=== PATIENT | male | born 1955 | race Caucasian/White ===

== ENCOUNTER 2020-03-05 12:50 | Outpatient (REF) | payer OTHER, SELFPAY ==
--- NOTE | 2020-03-05 12:52 | MR_ITS ---
EXAMINATION: MR LUMBAR SPINE WITHOUT CONTRAST CLINICAL INFORMATION: Lower extremity radiculopathy and low back pain. COMPARISON: MRI dated 12/14/2017 TECHNIQUE: MRI of the lumbar spine was obtained using routine sequences without contrast. FINDINGS: VERTEBRAL BODIES AND PARASPINAL STRUCTURES: The marrow signal is homogeneous. Bulky anterior endplate spurring noted at the L1-L2 and L3-L4 levels, as on prior imaging. No compression fractures or subluxations. No marrow or soft tissue edema is visible. The paraspinal soft tissues are unremarkable. There are [id number]-[id number] degenerative changes of the SI joints. CONUS MEDULLARIS AND CAUDA EQUINA: Normal, terminating at the level of L1. No lower cord signal abnormality is seen. The cauda equina nerve roots are normal. SPINAL LEVELS: L1-L2: Bulky anterior endplate spurring. No disc pathology otherwise, no central canal stenosis or foraminal narrowing. L2-L3: Moderate hypertrophic facet arthropathy and mild disc bulge present with mild central canal stenosis. Mild left foraminal narrowing. L3-L4: Mild disc bulge and moderate facet arthropathy without central canal stenosis or significant foraminal encroachment. L4-L5: Shallow central disc protrusion superimposed upon a diffuse disc bulge with moderate facet arthropathy significantly encroaching upon the subarticular zones. Mass effect upon the traversing L5 nerve roots without change. Mild central canal stenosis and mild foraminal narrowing. L5-S1: Moderate facet arthropathy, more so on the right side. No disc pathology, central canal stenosis, or foraminal narrowing. MR/MR lumbar spine wo con IMPRESSION: Relatively stable examination with multilevel facet arthropathy. Findings most significant at L4-L5 with a shallow central disc protrusion and moderate facet degeneration encroaching upon the subarticular zones. Stable distortion of the L5 nerve roots bilaterally with mild central canal stenosis.
== END 2020-03-05 12:51 | disposition home or self-care (01) ==
LOC: HO.MRI 12:50
PROVIDERS: PCP Physician Assistant; Visit Provider Physician Assistant
DX: M54.16 Radiculopathy, lumbar region (principal); M47.16 Other spondylosis with myelopathy, lumbar region
CPT/HCPCS: 72148

== ENCOUNTER 2020-05-07 09:01 | Outpatient (REF) | payer OTHER, SELFPAY ==
[2020-05-07 10:14] LABS: Hematocrit 45.4 % (42-52); Hemoglobin 15.2 g/dl (14.0-18.0); Mean Corpuscular HGB Conc 33.5 g/dl (31.0-36.0); Mean Corpuscular Hemoglobin 30.8 pg (27.0-33.0); Mean Corpuscular Volume 92.1 fL (80-98); Platelet Count 177 X10*3/uL (160-400); Red Blood Count 4.93 X10*6/uL (4.60-5.80)
[2020-05-07 10:34] LABS: Creatinine Urine 71.89 mg/dL; Microalbum/Creatinine Ratio Ur 6.9 ug/mg cr
[2020-05-07 10:35] LABS: Alanine Aminotransferase 20 U/L (0-40); Albumin Level 4.5 g/dL (3.5-5.0); Alkaline Phosphatase 105 U/L (39-117); Anion Gap 14 (12-20); Aspartate Amino Transferase 20 U/L (5-37); Bilirubin Total 0.7 mg/dL (0.0-1.0); Blood Urea Nitrogen 32 mg/dL (9-16); Calcium 9.4 mg/dL (8.4-10.2); Carbon Dioxide 28 mmol/L (22-29); Chloride 104 mmol/L (96-108); Cholesterol 249 mg/dL; Estimated Glomerular Filt Rate > 60; Glucose Fasting 84 mg/dL (60-99); HDL Cholesterol 55 mg/dL; LDL Cholesterol Calculated 155 mg/dl; Potassium 4.6 mmol/l (3.3-5.1); Sodium 141 mmol/L (135-145); Total Protein 6.9 g/dL (6.5-8.0); Triglycerides 198 mg/dL
[2020-05-07 10:39] LABS: Estimated Average Glucose 105 mg/dL; Hemoglobin A1c % 5.3 %
[2020-05-07 10:58] LABS: Prostate Specific Antigen Scr 1.52 ng/mL (<0.05-4.0); TSH reflex Free T4 3.01 mIU/mL (0.32-4.0)
== END 2020-05-07 09:02 | disposition home or self-care (01) ==
LOC: HO.LAB 09:01
PROVIDERS: PCP Physician Assistant; Visit Provider Physician Assistant
DX: Z00.00 Encounter for general adult medical examination without abnormal findings (principal); I10 Essential (primary) hypertension; Z12.5 Encounter for screening for malignant neoplasm of prostate
CPT/HCPCS: 36415; 80053; 80061; 82043; 83036; 84153; 84443; 85027

== ENCOUNTER 2020-07-25 10:37 | Outpatient (REF) | payer OTHER, SELFPAY ==
[2020-07-25 11:44] LABS: Hematocrit 48.2 % (42-52); Mean Corpuscular HGB Conc 33.2 g/dl (31.0-36.0); Mean Corpuscular Hemoglobin 31.5 pg (27.0-33.0); Mean Corpuscular Volume 94.9 fL (80-98); Platelet Count 208 X10*3/uL (160-400); Red Blood Count 5.08 X10*6/uL (4.60-5.80); Red Cell Distribution Width 12.6 % (11.0-16.0); White Blood Count 8.7 X10*3/uL (4.8-10.8)
[2020-07-25 11:58] LABS: Estimated Average Glucose 105 mg/dL; Hemoglobin A1c % 5.3 %
[2020-07-25 12:19] LABS: TSH reflex Free T4 2.23 uIU/mL (0.32-4.0)
[2020-07-25 12:26] LABS: Alanine Aminotransferase 20 U/L (0-40); Albumin Level 4.9 g/dL (3.5-5.0); Alkaline Phosphatase 105 U/L (39-117); Anion Gap 14 (12-20); Aspartate Amino Transferase 21 U/L (5-37); Bilirubin Total 0.9 mg/dL (0.0-1.0); Blood Urea Nitrogen 35 mg/dL (9-16); Calcium 9.4 mg/dL (8.4-10.2); Carbon Dioxide 28 mmol/L (22-29); Chloride 105 mmol/L (96-108); Cholesterol 177 mg/dL; Estimated Glomerular Filt Rate > 60; Glucose Fasting 93 mg/dL (60-99); HDL Cholesterol 60 mg/dL; LDL Cholesterol Calculated 101 mg/dl; Potassium 4.5 mmol/L (3.3-5.1); Sodium 142 mmol/L (135-145); Total Protein 7.3 g/dL (6.5-8.0); Triglycerides 80 mg/dL
[2020-07-31 17:06] LABS: Testosterone, Free 45.8 pg/mL (35.0-155.0); Testosterone, Total 503 ng/dL (250-1100)
== END 2020-07-25 10:38 | disposition home or self-care (01) ==
LOC: HO.LAB 10:37
PROVIDERS: PCP Physician Assistant; Visit Provider Physician Assistant
DX: N40.0 Benign prostatic hyperplasia without lower urinary tract symptoms (principal); R68.82 Decreased libido; I10 Essential (primary) hypertension; E78.2 Mixed hyperlipidemia; J30.1 Allergic rhinitis due to pollen
CPT/HCPCS: 36415; 80053; 80061; 83036; 84402; 84403; 84443; 85027

== ENCOUNTER 2020-10-14 09:14 | Outpatient (REF) | payer OTHER, SELFPAY ==
--- NOTE | ~2020-10-14 | XR_ITS ---
EXAMINATION: XR LUMBOSACRAL SPINE CLINICAL INFORMATION: Radiculopathy COMPARISON: None TECHNIQUE: Three views of the lumbosacral spine. FINDINGS: There is normal lumbar lordosis. The vertebral heights, alignment and disc heights are normal. Large bridging ventrally osteophyte L1-L2 disc level. No lytic process seen. Incidental finding of bilateral hip prosthesis XR/XR lumbar spine 2-3V IMPRESSION: No acute fracture or dislocation. Large bridging ventral osteophytes L-1-2 disc level
[2020-10-14 09:47] LABS: Hematocrit 45.6 % (42-52); Hemoglobin 15.1 g/dl (14.0-18.0); Mean Corpuscular HGB Conc 33.1 g/dl (31.0-36.0); Mean Corpuscular Hemoglobin 30.8 pg (27.0-33.0); Mean Corpuscular Volume 93.1 fL (80-98); Mean Platelet Volume 10.6 fL (9.4-12.4); Platelet Count 200 X10*3/uL (160-400); Red Cell Distribution Width 12.1 % (11.0-16.0); White Blood Count 6.9 X10*3/uL (4.8-10.8)
[2020-10-14 10:08] LABS: Alanine Aminotransferase 18 U/L (0-40); Albumin Level 4.7 g/dL (3.5-5.0); Alkaline Phosphatase 126 U/L (39-117); Anion Gap 12 (12-20); Aspartate Amino Transferase 20 U/L (5-37); Bilirubin Total 0.9 mg/dL (0.0-1.0); Blood Urea Nitrogen 29 mg/dL (9-16); Carbon Dioxide 26 mmol/L (22-29); Chloride 107 mmol/L (96-108); Cholesterol 178 mg/dL; Estimated Glomerular Filt Rate > 60; Glucose Fasting 91 mg/dL (60-99); HDL Cholesterol 46 mg/dL; LDL Cholesterol Calculated 104 mg/dl; Potassium 4.5 mmol/L (3.3-5.1); Sodium 140 mmol/L (135-145); Triglycerides 140 mg/dL
[2020-10-14 10:29] LABS: Creatinine Urine 281.52 mg/dL; Microalbum/Creatinine Ratio Ur 7.4 ug/mg cr
[2020-10-14 10:30] LABS: TSH reflex Free T4 2.04 uIU/mL (0.32-4.0)
== END 2020-10-14 09:15 | disposition home or self-care (01) ==
LOC: HO.XRAY 09:14
PROVIDERS: PCP Physician Assistant; Visit Provider Physician Assistant
DX: I10 Essential (primary) hypertension (principal); E78.2 Mixed hyperlipidemia; M54.16 Radiculopathy, lumbar region
CPT/HCPCS: 36415; 72100; 80053; 80061; 82043; 84443; 85027

== ENCOUNTER 2023-03-03 12:56 | Outpatient (AMB) | payer OTHER, SELFPAY ==
--- NOTE | 2023-03-03 13:11 | A.OFFPC_ITS ---
Vital Signs 03/03/23 13:12 Height 5 ft 9 in Weight 190 lb 6 oz BMI 28.1 BP 132/68 Blood Pressure Location Lt brachial Position Sitting Respiration 16 Pulse 75 Pulse Source Pulse Oximeter Pulse Oximetry (%) 98 Oxygen Delivery Method Room Air Intake Visit Reasons: Annual Physical Intake Note: Patient is here today for a physical. 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 Accompanied by: Self / Same As Patient Allergies Seasonal Allergies Allergy (Unknown, Uncoded 03/03/23 13:28) unknown Medication List - Last Reconciled 03/03/23 by Diogenes Murdock PA-C albuterol sulfate 90 mcg/actuation 2 puffs PO Q4H PRN atorvastatin 20 mg PO DAILY fluoxetine 20 mg PO DAILY ipratropium bromide 2 sprays intranasal BID lisinopril 30 mg PO DAILY 90 days montelukast 10 mg PO DAILY 30 days tizanidine 4 mg PO BID 10 days Tobacco use date assessed: 03/03/23 Fall risk assessment: No Falls in past year Last assessed Fall Risk: 03/03/23 Dental Screening Dental Screen Date: 03/03/23 Did you have a dental visit in the last 12 months?: Yes Did you have a dental problem in the last 6 months where you did not have access to dental care?: No Was dental information given to patient?: Patient has dentist HPI Annual Physical HPI Details Patient is a 65 y/o M here today for a f/u visit. Pmhx of HLD, HTN, ONEYDA,, allergic rhinitis Concerns--> has been having bilateral feet tingling, wondering if this is due to his lumbar spine disc disease. . Anxiety: Patient's anxiety has been stable with daily use of his fluoxetine medication. .. HLD: Patient continues on statin therapy. Most recent lipid panel in April 2020 showing elevated cholesterol at 249 LDL 155. He reports he has been changing his diet in hopes to reduce his cholesterol. Colon cancer screening: Has done Cologuard in 2020 repeat 2019 for Vaccine: Up-to-date with COVID, pneumonia, tetanus and flu vaccine. Still considering shingles vaccine [facility] Medical History Dental root implant present Lumbar radiculopathy Surgical History History of surgery Hx of laminectomy Family History Father COPD (chronic obstructive pulmonary disease) Cirrhosis Mother CAD (coronary artery disease) CHF (congestive heart failure) Social History Housing: House Alcohol intake: never Patient Tobacco Use Status: Former Tobacco user Tobacco use type: Cigarette e-Cigarette/Vaping Use: Never Used Second Hand Smoke Exposure: No service: No Current occupational status: retired Cognitive needs: No Hearing needs: No Vision needs: No Questionnaire PHQ-9 Over the last 2 weeks, how often have you been bothered by any of the following problems? 1. Little interest or pleasure in doing things: not at all 2. Feeling down, depressed, or hopeless: not at all 3. Trouble falling or staying asleep, or sleeping too much: not at all 4. Feeling tired or having little energy: not at all 5. Poor appetite or overeating: not at all 6. Feeling bad about yourself - or that you are a failure or have let yourself or your family down: not at all 7. Trouble concentrating on things, such as reading the newspaper or watching television: not at all 8. Moving or speaking so slowly that other people could have noticed. Or the opposite - being so fidgety or restless that you have been moving around a lot more than usual: not at all 9. Thoughts that you would be better off or of hurting yourself in some way: not at all Total score: 0 Depression Screening Interpretation: Negative Depression Screening Done: Yes 27169 - PHQ-9 Billing: Yes Source: Developed by Drs. Chan Mclaughlin, Maeve Gibson, Damir Hawkins and colleagues, with an educational taya from [employer]. Thrive Questionnaire Date Thrive assessed: 03/03/23 I am a: Patient What is your living situation today?: I have a steady place to live Within the past 12 months, did the food you bought not last and you didn't have the money to get more?: Never true Within the past 12 months, did you worry whether your food would run out before you got money to buy more?: Never true Do you have trouble paying for medicines?: No Do you have trouble getting transportation to medical appointments?: No Do you have trouble paying your heating and electricity bill?: No Do you have trouble taking care of your child, family member or friend?: No Do you have trouble with day-to-day activities such as bathing, preparing meals, shopping, managing finances, etc.?: No Are you currently unemployed and looking for a job?: No Are you interested in more education?: No Please select the resources that you would like help with: None Currently or been in a relationship where the following occur: no concerns reported AUDIT C Alcohol Use Questionnaire (AUDIT-C) 1. How often do you have a drink containing alcohol?: Never 3. How often do you have six or more drinks on one occasion?: Never Total Score: 0 ONEYDA-7 AMB Questionnaire ONEYDA-7 Date ONEYDA - 7 assessed: 03/03/23 Feeling nervous, anxious, or on edge: 0 = Not at all Not being able to stop or control worryin = Not at all Worrying too much about different things: 0 = Not at all Trouble relaxin = Not at all Being so restless that it is hard to sit still: 0 = Not at all Becoming easily annoyed or irritable: 0 = Not at all Feeling afraid as if something awful might happen: 0 = Not at all Total ONEYDA-7 score (0-4 normal; 5-9 mild; 10-14 moderate; 15-21 severe): 0 Source: Developed by Drs. Chan Mclaughlin, Maeve Gibson, Damir Hawkins and colleagues, with an educational taya from [employer]. ONEYDA-7 Assessment Billing ONEYDA-7 Assessment Tool: ONEYDA-7 Assessment 22760 Review of Systems Const Denies body aches, Denies chills, Denies excessive sweating, Denies fatigue, Denies fever(s) and Denies headache(s) Eyes Denies blurry vision ENT Denies dysphagia, Denies vertigo, Denies dizziness, Denies headache(s), Denies hearing loss and Denies tinnitus Card Denies chest pain, Denies chest pain with activity, Denies syncope, Denies irregular heart rhythm and Denies dyspnea Resp Denies chest congestion, Denies cough, Denies hemoptysis, Denies dyspnea and Denies wheezing GI Denies abdominal pain, Denies melena, Denies hematochezia, Denies coffee ground emesis, Denies dysphagia, Denies diarrhea, Denies nausea and Denies vomiting Denies difficulty urinating, Denies dysuria, Denies urinary frequency, Denies urinary hesitancy and Denies urinary urgency Musc Denies arthralgias, Denies limited range of motion, Denies muscle cramps and Denies muscle weakness Skin/Breast Denies rash and Denies skin ulcer Neuro Denies Abnormal speech present, Denies confusion, Denies vertigo, Denies dizziness, Denies syncope, Denies headache(s), Denies memory loss and Denies seizure-like activity Psych Denies anxiety, Denies confusion, Denies depression, Denies memory loss, Denies panic attacks and Denies paranoia Endo Denies excessive sweating, Denies fatigue, Denies flushing, Denies polydipsia and Denies polyuria Aller/Immun Denies wheezing Physical exam (Primary Care) Vital Signs: Last Vital Signs Pulse 75 03/03/23 13:12 Resp 16 03/03/23 13:12 BP 132/68 03/03/23 13:12 Pulse Ox 98 03/03/23 13:12 Oxygen Delivery Method Room Air 03/03/23 13:12 BMI result Body Mass Index 28.1 Tobacco/Smoking Status: Tobacco use Status Tobacco use date assessed 03/03/23 03/03/23 13:17 Patient Tobacco Use Status Former Tobacco user 03/03/23 13:17 Tobacco use type Cigarette 03/03/23 13:17 e-Cigarette/Vaping Use Never Used 03/03/23 13:17 PHQ-9: PHQ-9 Score PHQ-9: Total score 0 03/03/23 13:17 Depression Screening Interpretation: Negative Thrive Assessment: Date of Thrive Assessment Date Thrive assessed 03/03/23 03/03/23 13:17 Currently or been in a relationship where the following occur: no concerns reported Const General: cooperative, comfortable, no acute distress, alert and awake; No confusion Orientation/consciousness: oriented to person, oriented to place, patient oriented x3 and No confusion HENMT Head: Yes normocephalic Ears: external ears normal and TM's normal bilaterally Face and sinus: No sinus tenderness Mouth: Normal oral and palatal mucosa present and tongue normal Teeth and gingiva: dentition normal and gingiva normal Throat: Yes posterior oropharynx normal, Yes tonsils normal and Yes uvula midline Eyes Conjunctivae: conjunctivae normal Sclerae: sclerae normal Pupils: Equal, round and reactive pupils present EOM: EOMs intact bilaterally Direct Ophthalmoscopy: No no photophobia Neck Neck: Yes no lymphadenopathy, No tender and Yes no JVD Thyroid: Thyroid normal Carotids: no bruits Chest Chest palpation & inspection: no tenderness Resp Effort & Inspection: normal respiratory effort, no audible wheezes, not labored and no stridor Auscultation: no crackles, no rales, no rhonchi and no wheezes Cardio Jugular venous distension: no JVD Rate: regular rate, not bradycardic and not tachycardic Rhythm: regular rhythm Bruits: no carotid bruits Peripheral pulses: Peripheral pulses 2+ throughout GI Inspection: Yes normal to inspection, No abdominal wall ecchymosis and No visible herniation Palpation (GI): Soft to palpation, nontender, no guarding, not rigid and No hepatosplenomegaly present Auscultation: normoactive bowel sounds General: Yes no CVA tenderness Back/Spine/Pelvis Back: no CVA tenderness and No back tenderness Cervical Spine: cervical ROM normal Thoracic/Lumbar Spine: thoracic and lumbar spine normal to inspection, straight leg raise negative bilaterally, No thoraco-lumbar ROM limited and No lumbar spinal tenderness Skin Lesions: no lesions Rashes: no rashes Wounds: no wounds Neuro General: oriented to person, oriented to place, patient oriented x3, CN's II-XI intact bilaterally and No confusion Cranial nerves: Yes Equal, round and reactive pupils present and Yes Normal accommodation reflex present Cognition (Neuro): normal cognition Speech: No Abnormal speech present Gait exam (Neuro): Normal gait present Motor exam (neuro): 5/5 motor strength present throughout Extrem Right upper extremity: full ROM; no cyanosis Left upper extremity: full ROM; no cyanosis Right lower extremity: no edema Left lower extremity: no edema Psych Appearance: grossly normal Mental Status: mental status grossly normal Affect: normal affect Attitude: cooperative Thought process: Normal thought process present Assessment and Plan Assessment & Plan (1) Annual physical exam: Code(s): Z00.00 - Encounter for general adult medical examination without abnormal findings (2) HTN (hypertension): Code(s): I10 - Essential (primary) hypertension Qualifiers: Hypertension type: essential hypertension Qualified Code(s): I10 - Essential (primary) hypertension Plan: Patient's blood pressure acceptable today in spite continues was sent home pressure remain below 140/90 (3) ONEYDA (generalized anxiety disorder): Code(s): F41.1 - Generalized anxiety disorder Plan: Patient continues on medication for since diet has been fairly well controlled. (4) HLD (hyperlipidemia): Code(s): E78.5 - Hyperlipidemia, unspecified Qualifiers: Hyperlipidemia type: mixed hyperlipidemia Qualified Code(s): E78.2 - Mixed hyperlipidemia Plan: Patient continues on statin therapy without side effect. He will get fasting labs done in near future. Goal LDL to remain below 130 (5) Allergic rhinitis: Code(s): J30.9 - Allergic rhinitis, unspecified Qualifiers: Allergic rhinitis trigger: pollen Allergic rhinitis seasonality: unspecified Qualified Code(s): J30.1 - Allergic rhinitis due to pollen Plan: Continues with allergy medication and nasal spray with good affect. (6) Lumbar disc displacement without myelopathy: Code(s): M51.26 - Other intervertebral disc displacement, lumbar region Plan: Continues to have lower back and neck pains daughter manageable with his own home physical therapy. He does use muscle relaxer an as-needed basis. Recently has been having tingling in his feet which may be related to a lumbar radiculopathy. Will supply patient with gabapentin the use at night. Orders: Orders Comprehensive [place]. Panel Fast Today E78.2 - Mixed hyperlipidemia Complete Blood Count no Diff Today I10 - Essential (primary) hypertension Prostate Specific Antigen Scr Today I10 - Essential (primary) hypertension, Z12.5 - Encounter for screening for malignant neoplasm of prostate Lipid Panel Today E78.2 - Mixed hyperlipidemia Medications: New gabapentin 300 mg PO BEDTIME 90 days 90 caps 1RF M51.26 - Other intervertebral disc displacement, lumbar region Refilled tizanidine 4 mg PO BID 10 days 20 tabs 0RF muscle spasticity M54.16 - Radiculopathy, lumbar region Coding Level of Care Code Est Pt Prev Care >65y(22419) Diagnoses Annual physical exam Z00.00 Essential hypertension I10 Hypertension type: essential hypertension ONEYDA (generalized anxiety disorder) F41.1 Mixed hyperlipidemia E78.2 Hyperlipidemia type: mixed hyperlipidemia Allergic rhinitis due to pollen, unspecified seasonality J30.1 Allergic rhinitis trigger: pollen Allergic rhinitis seasonality: unspecified Lumbar disc displacement without myelopathy M51.26 Additional Codes ONEYDA-7 Assessment Billing - ONEYDA-7 Assessment Tool: ONEYDA-7 Assessment 37309 ([id number])
[2023-03-03 13:12] VITALS: BP 132/68; PULSE 75; RESP 16; O2SAT 98; BMI 28.1
== END 2023-03-03 13:44 | disposition home or self-care (01) ==
PROVIDERS: PCP Physician Assistant; Visit Provider Physician Assistant
DX: Z00.00 Encounter for general adult medical examination without abnormal findings (principal); I10 Essential (primary) hypertension; F41.1 Generalized anxiety disorder; E78.2 Mixed hyperlipidemia; J30.1 Allergic rhinitis due to pollen; M51.26 Other intervertebral disc displacement, lumbar region
CPT/HCPCS: 99397

== ENCOUNTER 2023-03-03 13:48 | Outpatient (REF) | payer OTHER, SELFPAY ==
[2023-03-03 14:42] LABS: Hematocrit 47.9 % (42.0-52.0); Hemoglobin 16.1 g/dl (14.0-18.0); Mean Corpuscular HGB Conc 33.6 g/dl (31.0-36.0); Mean Corpuscular Volume 89.2 fL (80.0-98.0); Mean Platelet Volume 10.6 fL (9.4-12.4); Platelet Count 219 X10*3/uL (160-400); Red Blood Count 5.37 X10*6/uL (4.60-5.80); Red Cell Distribution Width 12.3 % (11.0-16.0); White Blood Count 11.2 X10*3/uL (4.8-10.8)
[2023-03-03 15:36] LABS: Alanine Aminotransferase 31 U/L (0-40); Albumin Level 4.7 g/dL (3.5-5.0); Alkaline Phosphatase 137 U/L (39-117); Anion Gap 14 (12-20); Aspartate Amino Transferase 30 U/L (5-37); Bilirubin Total 0.7 mg/dL (0.0-1.0); Blood Urea Nitrogen 27 mg/dL (9-16); Carbon Dioxide 25 mmol/L (22-29); Chloride 104 mmol/L (96-108); Cholesterol 182 mg/dL (<200); Estimated Glomerular Filt Rate > 60; Glucose Fasting 79 mg/dL (60-99); HDL Cholesterol 47 mg/dL (>40); LDL Cholesterol Calculated 108 mg/dL (<100); Potassium 4.1 mmol/L (3.3-5.1); Sodium 139 mmol/L (135-145); Total Protein 7.8 g/dL (6.5-8.0); Triglycerides 135 mg/dL (<150)
[2023-03-03 16:00] LABS: Prostate Specific Antigen Scr 1.14 ng/mL (<0.05-4.0)
== END 2023-03-03 13:49 | disposition home or self-care (01) ==
LOC: HO.LAB 13:48
PROVIDERS: PCP Physician Assistant; Visit Provider Physician Assistant
DX: Z12.5 Encounter for screening for malignant neoplasm of prostate (principal); E78.2 Mixed hyperlipidemia; I10 Essential (primary) hypertension
CPT/HCPCS: 36415; 80053; 80061; 84153; 85027

== ENCOUNTER 2023-07-26 15:07 | Outpatient (AMB) | payer OTHER, SELFPAY ==
[2023-07-26 15:09] VITALS: BP 132/64; PULSE 64; O2SAT 98; BMI 27.9
--- NOTE | 2023-07-26 15:09 | MHC.PC.OV ---
Vital Signs 07/26/23 15:09 Height 5 ft 9 in Weight 189 lb 4 oz BMI 27.9 BP 132/64 Pulse 64 Pulse Source Pulse Oximeter Pulse Oximetry (%) 98 Oxygen Delivery Method Room Air Intake Visit Reasons: CHD 07/15/23 Intake Note: Patient is here for hospital discharge follow up. Patient was discharged from [facility] and then transfer to [facility] in [place] on 07/17/23. Catering Barista Required: No Accompanied by: Self / Same As Patient Allergies isosorbide [From Imdur] Adverse Reaction (Intermediate, Verified 07/27/23 07:56) Migraine metoprolol Adverse Reaction (Intermediate, Verified 07/27/23 07:56) Bradycardia Seasonal Allergies Allergy (Unknown, Uncoded 07/26/23 15:38) unknown Medication List - Last Reconciled 07/26/23 by Diogenes Murdock PA-C albuterol sulfate 90 mcg/actuation 2 puffs PO Q4H PRN amlodipine 5 mg PO DAILY aspirin 81 mg PO DAILY atorvastatin 80 mg PO DAILY clopidogrel 75 mg PO DAILY fluoxetine 20 mg PO DAILY gabapentin 300 mg PO BEDTIME 90 days ipratropium bromide 2 sprays intranasal BID isosorbide mononitrate ER 30 mg PO DAILY lisinopril 30 mg PO DAILY 90 days montelukast 10 mg PO DAILY 30 days nitroglycerin mg sublingual DIRECTED tizanidine 4 mg PO BID 10 days Tobacco use date assessed: 07/26/23 Fall risk assessment: No Falls in past year Last assessed Fall Risk: 07/26/23 Dental Screening Dental Screen Date: 07/26/23 Did you have a dental visit in the last 12 months?: Yes Did you have a dental problem in the last 6 months where you did not have access to dental care?: No Was dental information given to patient?: Patient has dentist HPI CHD 07/15/23 HPI Details Patient is a 68 y/o M here today for a hospital discharge follow-up. Pmhx of HLD, HTN, ONEYDA,, allergic rhinitis Coronary artery disease-- > Patient was seen at [facility] for acute chest pain. His troponins were negative, EKG was non ischemic. He was transferred to [facility] for cardiac catheterization which showed Complete block of RCA . He was transitioned to metoprolol, Imdur and Plavix. He unfortunately had bradycardia due to metoprolol and was unable to tolerate Imdur due to headaches. He was transition to amlodipine 5 mg. He now has an outpatient learning facilitator at [facility] whom will be sending patient for cardiac rehab. At this time he is going to be medically managed for his coronary artery disease. . Anxiety: Patient's anxiety has been elevated as of late due to his new heart condition. He is interested in increasing his fluoxetine dose to 40 mg. .. [facility] Medical History Dental root implant present Lumbar radiculopathy Surgical History History of surgery Hx of laminectomy Family History Father COPD (chronic obstructive pulmonary disease) Cirrhosis Mother CAD (coronary artery disease) CHF (congestive heart failure) Social History Housing: House Alcohol intake: never Patient Tobacco Use Status: Former Tobacco user Tobacco use type: Cigarette e-Cigarette/Vaping Use: Never Used Second Hand Smoke Exposure: No service: No Current occupational status: retired Cognitive needs: No Hearing needs: No Vision needs: No Questionnaire PHQ-9 Over the last 2 weeks, how often have you been bothered by any of the following problems? 1. Little interest or pleasure in doing things: not at all 2. Feeling down, depressed, or hopeless: not at all 3. Trouble falling or staying asleep, or sleeping too much: not at all 4. Feeling tired or having little energy: not at all 5. Poor appetite or overeating: not at all 6. Feeling bad about yourself - or that you are a failure or have let yourself or your family down: not at all 7. Trouble concentrating on things, such as reading the newspaper or watching television: not at all 8. Moving or speaking so slowly that other people could have noticed. Or the opposite - being so fidgety or restless that you have been moving around a lot more than usual: not at all 9. Thoughts that you would be better off or of hurting yourself in some way: not at all Total score: 0 Depression Screening Interpretation: Negative Depression Screening Done: Yes 52251 - PHQ-9 Billing: Yes Source: Developed by Drs. Chan Mclaughlin, Maeve Gibson, Damir Hawkins and colleagues, with an educational taya from [email or web address]. Thrive Questionnaire Date Thrive assessed: 07/26/23 I am a: Patient What is your living situation today?: I have a steady place to live Within the past 12 months, did the food you bought not last and you didn't have the money to get more?: Never true Within the past 12 months, did you worry whether your food would run out before you got money to buy more?: Never true Do you have trouble paying for medicines?: No Do you have trouble getting transportation to medical appointments?: No Do you have trouble paying your heating and electricity bill?: No Do you have trouble taking care of your child, family member or friend?: No Do you have trouble with day-to-day activities such as bathing, preparing meals, shopping, managing finances, etc.?: No Are you currently unemployed and looking for a job?: No Are you interested in more education?: No Please select the resources that you would like help with: None Currently or been in a relationship where the following occur: no concerns reported THRIVE Score: 0 AUDIT C Alcohol Use Questionnaire (AUDIT-C) 1. How often do you have a drink containing alcohol?: Never 3. How often do you have six or more drinks on one occasion?: Never Total Score: 0 ONEYDA-7 AMB Questionnaire ONEYDA-7 Date ONEYDA - 7 assessed: 07/26/23 Feeling nervous, anxious, or on edge: 3 = Nearly every day Not being able to stop or control worryin = Nearly every day Worrying too much about different things: 3 = Nearly every day Trouble relaxin = Nearly every day Being so restless that it is hard to sit still: 3 = Nearly every day Becoming easily annoyed or irritable: 3 = Nearly every day Feeling afraid as if something awful might happen: 3 = Nearly every day Total ONEYDA-7 score (0-4 normal; 5-9 mild; 10-14 moderate; 15-21 severe): 21 Source: Developed by Drs. Chan Mclaughlin, Damir Isabel Kroenke and colleagues, with an educational taya from [email or web address]. ONEYDA-7 Assessment Billing ONEYDA-7 Assessment Tool: ONEYDA-7 Assessment 09308 Review of Systems Const Reports fatigue and Denies headache(s) Eyes Denies loss of vision ENT Denies vertigo, Denies dizziness, Denies headache(s) and Denies sore throat Card Denies chest pain, Denies leg edema and Denies lightheadedness Resp Denies cough, Denies hemoptysis and Denies wheezing GI Denies abdominal pain, Denies melena, Denies constipation, Denies diarrhea and Denies vomiting Denies dysuria, Denies urinary frequency and Denies urinary urgency Musc Denies arthralgias, Denies joint swelling, Denies numbness and Denies tingling Neuro Denies Abnormal speech present, Denies behavioral changes, Denies vertigo, Denies dizziness, Denies headache(s), Denies loss of vision, Denies memory loss, Denies numbness and Denies tingling Psych Reports anxiety, Denies behavioral changes, Denies depression, Denies memory loss and Denies panic attacks Endo Reports fatigue Dane/Lymph Denies easy bleeding and Denies easy bruising Aller/Immun Denies wheezing Physical exam (Primary Care) Vital Signs: Last Vital Signs Pulse 64 07/26/23 15:09 BP 132/64 07/26/23 15:09 Pulse Ox 98 07/26/23 15:09 Oxygen Delivery Method Room Air 07/26/23 15:09 BMI result Body Mass Index 27.9 Tobacco/Smoking Status: Tobacco use Status Tobacco use date assessed 07/26/23 07/26/23 15:19 Patient Tobacco Use Status Former Tobacco user 07/26/23 15:09 Tobacco use type Cigarette 07/26/23 15:09 e-Cigarette/Vaping Use Never Used 07/26/23 15:09 PHQ-9: PHQ-9 Score PHQ-9: Total score 0 07/26/23 15:43 Depression Screening Interpretation: Negative Thrive Assessment: Date of Thrive Assessment Date Thrive assessed 07/26/23 07/26/23 15:19 Currently or been in a relationship where the following occur: no concerns reported Const General: healthy appearing, no acute distress, alert and awake Nutritional Appearance: well nourished Orientation/consciousness: oriented to person, oriented to place and oriented to time HENRI Ears: TM's normal bilaterally General nose exam: Normal nasal mucous membranes and turbinates present Eyes Conjunctivae: conjunctivae normal Sclerae: sclerae normal Pupils: Equal, round and reactive pupils present Neck Neck: Yes no lymphadenopathy and Yes no JVD Thyroid: Thyroid normal Carotids: no bruits Resp Effort & Inspection: normal respiratory effort and not tachypneic Auscultation: no crackles, no rales, no rhonchi and no wheezes Cardio Rate: regular rate Rhythm: regular rhythm Heart sounds: no murmurs and normal S1 and S2 GI Palpation (GI): Soft to palpation, nontender, no hepatomegaly and no splenomegaly Auscultation: normal bowel sounds Skin General skin exam: no rashes or lesions noted and dry skin Neuro General: oriented to person, oriented to place and oriented to time Cranial nerves: Yes Equal, round and reactive pupils present Speech: No Abnormal speech present Gait exam (Neuro): Normal gait present Motor exam (neuro): no tremor noted Extrem Right upper extremity: full ROM Left upper extremity: full ROM Right lower extremity: full ROM; no edema Left lower extremity: full ROM; no edema Psych Mental Status: mental status grossly normal Speech and movement: Normal speech and movement present Affect: normal affect Attitude: cooperative Thought process: Normal thought process present Assessment and Plan Assessment & Plan (1) CAD (coronary artery disease): Code(s): I25.10 - Atherosclerotic heart disease of [place] coronary artery without angina pectoris Qualifiers: Associated angina: with unstable angina Coronary Disease-Associated Artery/Lesion type: [place] artery [place] vs. transplanted heart: [place] heart Qualified Code(s): I25.110 - Atherosclerotic heart disease of [place] coronary artery with unstable angina pectoris Plan: As per HPI patient recently underwent cardiac catheterization showing complete occlusion of the RCA. Stent can not be placed. Patient is now being medically managed for his coronary artery disease. He has outpatient learning facilitator at [facility]. He will be sent for cardiac rehab. He has been started on high-dose statin therapy, dual anti-platelet therapy for the next year. Of note he was unable to tolerate metoprolol and Imdur due to side effects (2) HTN (hypertension): Code(s): I10 - Essential (primary) hypertension Qualifiers: Hypertension type: essential hypertension Qualified Code(s): I10 - Essential (primary) hypertension Plan: Patient has been started on amlodipine 5 mg. Blood pressure acceptable today in office. Advised to monitor blood pressure at home with goal blood pressure to remain below 140/90. (3) HLD (hyperlipidemia): Code(s): E78.5 - Hyperlipidemia, unspecified Qualifiers: Hyperlipidemia type: mixed hyperlipidemia Qualified Code(s): E78.2 - Mixed hyperlipidemia Plan: Now on high potency statin. Will recheck lipid panel to ensure appropriate LDL optimally below 70. (4) ONEYDA (generalized anxiety disorder): Code(s): F41.1 - Generalized anxiety disorder Plan: Patient's ONEYDA-7 score positive for anxiety which has been existing condition for him. Patient reports his anxiety has been elevated as of late due to his new medical issue. He would like to increase his fluoxetine to 40 mg Orders: Orders Lipid Panel 07/26/23 I25.110 - Atherosclerotic heart disease of [place] coronary artery with unstable angina pectoris Comprehensive [place]. Panel Fast 07/26/23 I25.110 - Atherosclerotic heart disease of [place] coronary artery with unstable angina pectoris Complete Blood Count no Diff 07/26/23 I25.110 - Atherosclerotic heart disease of [place] coronary artery with unstable angina pectoris Prostate Specific Antigen Scr 07/26/23 I25.110 - Atherosclerotic heart disease of [place] coronary artery with unstable angina pectoris, Z12.5 - Encounter for screening for malignant neoplasm of prostate Medications: New fluoxetine 40 mg PO DAILY 30 days 30 caps 3RF F41.1 - Generalized anxiety disorder On Hold fluoxetine Hold Comment: Doctor's Order 20 mg PO DAILY 90 caps 2RF F41.1 - Generalized anxiety disorder Coding Level of Care Code Est Pt Level 4 (69339) Diagnoses Coronary artery disease involving [place] coronary artery of [place] heart with unstable angina pectoris I25.110 Associated angina: with unstable angina Coronary Disease-Associated Artery/Lesion type: [place] artery [place] vs. transplanted heart: [place] heart Essential hypertension I10 Hypertension type: essential hypertension Mixed hyperlipidemia E78.2 Hyperlipidemia type: mixed hyperlipidemia ONEYDA (generalized anxiety disorder) F41.1 Additional Codes ONEYDA-7 Assessment Billing - ONEYDA-7 Assessment Tool: ONEYDA-7 Assessment 26191 ([id number])
== END 2023-07-26 16:12 | disposition home or self-care (01) ==
PROVIDERS: PCP Physician Assistant; Visit Provider Physician Assistant
DX: I25.110 Atherosclerotic heart disease of native coronary artery with unstable angina pectoris (principal); I10 Essential (primary) hypertension; E78.2 Mixed hyperlipidemia; F41.1 Generalized anxiety disorder
CPT/HCPCS: 99214

== ENCOUNTER 2024-03-06 13:08 | Outpatient (REF) | payer OTHER, SELFPAY ==
[2024-03-06 14:30] LABS: Hematocrit 45.5 % (42.0-52.0); Hemoglobin 15.7 g/dl (14.0-18.0); Mean Corpuscular HGB Conc 34.5 g/dl (31.0-36.0); Mean Corpuscular Volume 89.9 fL (80.0-98.0); Mean Platelet Volume 10.4 fL (9.4-12.4); Platelet Count 226 X10*3/uL (160-400); Red Blood Count 5.06 X10*6/uL (4.60-5.80); Red Cell Distribution Width 12.6 % (11.0-16.0); White Blood Count 9.1 X10*3/uL (4.8-10.8)
[2024-03-06 15:05] LABS: Alanine Aminotransferase 37 U/L (0-40); Albumin Level 4.6 g/dL (3.5-5.0); Alkaline Phosphatase 133 U/L (39-117); Anion Gap 11 (12-20); Aspartate Amino Transferase 33 U/L (5-37); Bilirubin Total 0.6 mg/dL (0.0-1.0); Blood Urea Nitrogen 27 mg/dL (9-16); Calcium 9.8 mg/dL (8.4-10.2); Carbon Dioxide 28 mmol/L (22-29); Chloride 104 mmol/L (96-108); Cholesterol 139 mg/dL (<200); Estimated Glomerular Filt Rate > 60; Glucose Fasting 160 mg/dL (60-99); HDL Cholesterol 45 mg/dL (>40); LDL Cholesterol Calculated 74 mg/dL (<100); Potassium 3.9 mmol/L (3.3-5.1); Sodium 139 mmol/L (135-145); Total Protein 7.4 g/dL (6.5-8.0); Triglycerides 103 mg/dL (<150)
[2024-03-06 15:12] LABS: Creatinine Urine 205.09 mg/dL; Microalbum/Creatinine Ratio Ur 23.4 ug/mg cr (<30)
[2024-03-06 15:19] LABS: Prostate Specific Antigen Scr 1.12 ng/mL (<0.05-4.0)
== END 2024-03-06 13:09 | disposition home or self-care (01) ==
LOC: HO.LAB 13:08
PROVIDERS: PCP Physician Assistant; Visit Provider Physician Assistant
DX: Z00.00 Encounter for general adult medical examination without abnormal findings (principal); Z12.5 Encounter for screening for malignant neoplasm of prostate; I10 Essential (primary) hypertension; I25.110 Atherosclerotic heart disease of native coronary artery with unstable angina pectoris; M54.12 Radiculopathy, cervical region; K62.3 Rectal prolapse
CPT/HCPCS: 36415; 80053; 80061; 82043; 82570; 84153; 85027; 90471; 96127

== ENCOUNTER 2024-03-06 13:08 | Outpatient (AMB) | payer OTHER, SELFPAY ==
[2024-03-06 13:15] VITALS: BP 148/62; PULSE 96; O2SAT 97; BMI 26.8
--- NOTE | 2024-03-06 13:15 | A.OFFPC_ITS ---
Vital Signs 03/06/24 13:15 Height 5 ft 9 in Weight 181 lb 8 oz BMI 26.8 BP 148/62 H Blood Pressure Location Lt brachial Position Sitting Pulse 96 Pulse Source Pulse Oximeter Pulse Oximetry (%) 97 Oxygen Delivery Method Room Air Intake Visit Reasons: pe - see comments Intake Note: Patient is here today for a physical. 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 Accompanied by: Self / Same As Patient Allergies isosorbide [From Imdur] Adverse Reaction (Intermediate, Verified 03/06/24 13:17) Migraine metoprolol Adverse Reaction (Intermediate, Verified 03/06/24 13:17) Bradycardia Seasonal Allergies Allergy (Unknown, Uncoded 03/06/24 13:17) unknown Medication List - Last Reconciled 03/06/24 by Diogenes Murdock PA-C albuterol sulfate 90 mcg/actuation 2 puffs PO Q4H PRN amlodipine 5 mg PO DAILY aspirin 81 mg PO DAILY atorvastatin 80 mg PO DAILY clopidogrel 75 mg PO DAILY fluoxetine 20 mg PO DAILY fluoxetine 40 mg PO DAILY gabapentin 300 mg PO BEDTIME 90 days ipratropium bromide 2 sprays intranasal BID lisinopril 30 mg PO DAILY 90 days montelukast 10 mg PO DAILY 30 days nitroglycerin mg sublingual DIRECTED tizanidine 4 mg PO BID 10 days Tobacco use date assessed: 07/26/23 Dental Screening Dental Screen Date: 07/26/23 HPI pe - see comments HPI Details Patient is a 69 y/o M here today for routine annual physical Pmhx of HLD, HTN, ONEYDA,, allergic rhinitis, cervical disc disease \ Coronary artery disease-- > Patient was seen at [facility] for acute chest pain. His troponins were negative, EKG was non ischemic. He was transferred to [facility] for cardiac catheterization which showed Complete block of RCA . He was transitioned to metoprolol, Imdur and Plavix. He unfortunately had bradycardia due to metoprolol and was unable to tolerate Imdur due to headaches. Has now finished cardiac rehab and has done really well. At this time he is going to be medically managed for his coronary artery disea se. He is now interested transferring his care to [facility] .. Cervical spine disease: Recently neck pain and decreased range of motion/stiffness in his neck. Did go see [facility] and received cortisone injections which did help. His x-ray does show pretty severe neural foraminal encroachment. Of note===> Has had a laminectomy in 1980s. . Anxiety: Patient's anxiety has been elevated as of late due to his new heart condition. He is interested in increasing his fluoxetine dose to 40 mg. .. Colon cancer screening: Has done Cologuard in 2023- Neg repeat 3 years- does report having an intermittent bulge in his rectum whenever he strains. We did discuss that this may be a hemorrhoid. He would like to see rectal surgeon for evaluation Vaccine: Up-to-date with COVID, pneumonia, tetanus and flu vaccine. Still considering shingles vaccine [facility] Medical History (Updated 03/06/24 @ 14:34 by Diogenes Murdock PA-C) Cervical spondylitis Dental root implant present Lumbar radiculopathy Surgical History History of surgery Hx of laminectomy Family History Father COPD (chronic obstructive pulmonary disease) Cirrhosis Mother CAD (coronary artery disease) CHF (congestive heart failure) Social History Housing: House Alcohol intake: never Patient Tobacco Use Status: Former Tobacco user Tobacco use type: Cigarette e-Cigarette/Vaping Use: Never Used Second Hand Smoke Exposure: No service: No Current occupational status: retired Cognitive needs: No Hearing needs: No Vision needs: No Questionnaire PHQ-9 Over the last 2 weeks, how often have you been bothered by any of the following problems? 1. Little interest or pleasure in doing things: not at all 2. Feeling down, depressed, or hopeless: not at all 3. Trouble falling or staying asleep, or sleeping too much: not at all 4. Feeling tired or having little energy: not at all 5. Poor appetite or overeating: not at all 6. Feeling bad about yourself - or that you are a failure or have let yourself or your family down: not at all 7. Trouble concentrating on things, such as reading the newspaper or watching television: not at all 8. Moving or speaking so slowly that other people could have noticed. Or the opposite - being so fidgety or restless that you have been moving around a lot more than usual: not at all 9. Thoughts that you would be better off or of hurting yourself in some way: not at all Total score: 0 Depression Screening Interpretation: Negative Depression Screening Done: Yes 51008 - PHQ-9 Billing: Yes Source: Developed by Drs. Chan Mclaughlin, Maeve Gibson, Damir Hawkins and colleagues, with an educational taya from [employer]. Thrive Questionnaire Date Thrive assessed: 03/06/24 I am a: Patient What is your living situation today?: I have a steady place to live Within the past 12 months, did the food you bought not last and you didn't have the money to get more?: Often true Within the past 12 months, did you worry whether your food would run out before you got money to buy more?: Sometimes True Do you have trouble paying for medicines?: No Do you have trouble getting transportation to medical appointments?: No Do you have trouble paying your heating and electricity bill?: No Do you have trouble taking care of your child, family member or friend?: No Do you have trouble with day-to-day activities such as bathing, preparing meals, shopping, managing finances, etc.?: No Are you currently unemployed and looking for a job?: No Are you interested in more education?: No Please select the resources that you would like help with: Food Currently or been in a relationship where the following occur: No concerns reported THRIVE Score: 2 AUDIT C Alcohol Use Questionnaire (AUDIT-C) 1. How often do you have a drink containing alcohol?: Never 3. How often do you have six or more drinks on one occasion?: Never Total Score: 0 ONEYDA-7 AMB Questionnaire ONEYDA-7 Date ONEYDA - 7 assessed: 03/06/24 Feeling nervous, anxious, or on edge: 0 = Not at all Not being able to stop or control worryin = Not at all Worrying too much about different things: 0 = Not at all Trouble relaxin = Not at all Being so restless that it is hard to sit still: 0 = Not at all Becoming easily annoyed or irritable: 0 = Not at all Feeling afraid as if something awful might happen: 0 = Not at all Total ONEYDA-7 score (0-4 normal; 5-9 mild; 10-14 moderate; 15-21 severe): 0 Source: Developed by Drs. Chan Mclaughlin, Maeve Gibson, Damir Hawkins and colleagues, with an educational taya from [employer]. ONEYDA-7 Assessment Billing ONEYDA-7 Assessment Tool: ONEYDA-7 Assessment 66624 Review of Systems Const Denies body aches, Denies chills, Denies excessive sweating, Denies fatigue, Denies fever(s) and Denies headache(s) Eyes Denies blurry vision ENT Denies dysphagia, Denies vertigo, Denies dizziness, Denies headache(s), Denies hearing loss and Denies tinnitus Card Denies chest pain, Denies chest pain with activity, Denies syncope, Denies irregular heart rhythm and Denies dyspnea Resp Denies chest congestion, Denies cough, Denies hemoptysis, Denies dyspnea and Denies wheezing GI Denies abdominal pain, Denies melena, Denies hematochezia, Denies coffee ground emesis, Denies dysphagia, Denies diarrhea, Denies nausea and Denies vomiting Denies difficulty urinating, Denies dysuria, Denies urinary frequency, Denies urinary hesitancy and Denies urinary urgency Musc Denies arthralgias, Denies limited range of motion, Denies muscle cramps and Denies muscle weakness Skin/Breast Denies rash and Denies skin ulcer Neuro Denies Abnormal speech present, Denies confusion, Denies vertigo, Denies dizziness, Denies syncope, Denies headache(s), Denies memory loss and Denies seizure-like activity Psych Denies anxiety, Denies confusion, Denies depression, Denies memory loss, Denies panic attacks and Denies paranoia Endo Denies excessive sweating, Denies fatigue, Denies flushing, Denies polydipsia and Denies polyuria Aller/Immun Denies wheezing Physical exam (Primary Care) Vital Signs: Last Vital Signs Pulse 96 03/06/24 13:15 BP 148/62 H 03/06/24 13:15 Pulse Ox 97 03/06/24 13:15 Oxygen Delivery Method Room Air 03/06/24 13:15 BMI result Body Mass Index 26.8 Tobacco/Smoking Status: Tobacco use Status Tobacco use date assessed 07/26/23 03/06/24 13:16 Patient Tobacco Use Status Former Tobacco user 03/06/24 13:16 Tobacco use type Cigarette 03/06/24 13:16 e-Cigarette/Vaping Use Never Used 03/06/24 13:16 PHQ-9: PHQ-9 Score PHQ-9: Total score 0 03/06/24 13:19 Depression Screening Interpretation: Negative Thrive Assessment: Date of Thrive Assessment Date Thrive assessed 03/06/24 03/06/24 13:16 Currently or been in a relationship where the following occur: No concerns re ported Const General: cooperative, comfortable, no acute distress, alert and awake; No confusion Orientation/consciousness: oriented to person, oriented to place, patient oriented x3 and No confusion HENMT Head: Yes normocephalic Ears: external ears normal and TM's normal bilaterally Face and sinus: No sinus tenderness Mouth: Normal oral and palatal mucosa present and tongue normal Teeth and gingiva: dentition normal and gingiva normal Throat: Yes posterior oropharynx normal, Yes tonsils normal and Yes uvula midline Eyes Conjunctivae: conjunctivae normal Sclerae: sclerae normal Pupils: Equal, round and reactive pupils present EOM: EOMs intact bilaterally Direct Ophthalmoscopy: No no photophobia Neck Neck: Yes no lymphadenopathy, No tender and Yes no JVD Thyroid: Thyroid normal Carotids: no bruits Chest Chest palpation & inspection: no tenderness Resp Effort & Inspection: normal respiratory effort, no audible wheezes, not labored and no stridor Auscultation: no crackles, no rales, no rhonchi and no wheezes Cardio Jugular venous distension: no JVD Rate: regular rate, not bradycardic and not tachycardic Rhythm: regular rhythm Bruits: no carotid bruits Peripheral pulses: Peripheral pulses 2+ throughout GI Inspection: Yes normal to inspection, No abdominal wall ecchymosis and No visible herniation Palpation (GI): Soft to palpation, nontender, no guarding, not rigid and No hepatosplenomegaly present Auscultation: normoactive bowel sounds General: Yes no CVA tenderness Back/Spine/Pelvis Back: no CVA tenderness and No back tenderness Cervical Spine: cervical ROM normal Thoracic/Lumbar Spine: thoracic and lumbar spine normal to inspection, straight leg raise negative bilaterally, No thoraco-lumbar ROM limited and No lumbar spinal tenderness Skin Lesions: no lesions Rashes: no rashes Wounds: no wounds Neuro General: oriented to person, oriented to place, patient oriented x3, CN's II-XI intact bilaterally and No confusion Cranial nerves: Yes Equal, round and reactive pupils present and Yes Normal accommodation reflex present Cognition (Neuro): normal cognition Speech: No Abnormal speech present Gait exam (Neuro): Normal gait present Motor exam (neuro): 5/5 motor strength present throughout Extrem Right upper extremity: full ROM; no cyanosis Left upper extremity: full ROM; no cyanosis Right lower extremity: no edema Left lower extremity: no edema Psych Appearance: grossly normal Mental Status: mental status grossly normal Affect: normal affect Attitude: cooperative Thought process: Normal thought process present Office Procedures Flu Questionnaire Does the patient have a severe egg allergy?: No Immunizations Fluarix Triv [id number] (PF) 45 mcg (15 mcg x 3)/0.5 mL IM syringe Performing Provider: Diogenes Murdock PA-C [facility] Documented (not given) by: KIM Hooks on 03/06/24 13:17 Reason Not Given: Received Previously Coding Level of Care Code Est Pt Prev Care >65y(17241) Diagnoses Annual physical exam Z00.00 Essential hypertension I10 Hypertension type: essential hypertension Coronary artery disease involving [place] coronary artery of [place] heart with unstable angina pectoris I25.110 Associated angina: with unstable angina Coronary Disease-Associated Artery/Lesion type: [place] artery [place] vs. transplanted heart: [place] heart Cervical radiculitis M54.12 Rectal prolapse K62.3 Additional Codes ONEYDA-7 Assessment Billing - ONEYDA-7 Assessment Tool: ONEYDA-7 Assessment 51996 ([id number]) Assessment & Plan Assessment & Plan (1) Annual physical exam: Code(s): Z00.00 - Encounter for general adult medical examination without abnormal findings Category: Medical Plan: As per HPI (2) HTN (hypertension): Code(s): I10 - Essential (primary) hypertension Category: Medical Qualifiers: Hypertension type: essential hypertension Qualified Code(s): I10 - Essential (primary) hypertension Plan: Patient's blood pressure slightly elevated today in office. He reports having assaulted better popcorn before his appointment today. He does monitor his blood pressure at home and reports normal readings. Goal blood pressures to be below 140/90 (3) CAD (coronary artery disease): Code(s): I25.10 - Atherosclerotic heart disease of [place] coronary artery without angina pectoris Category: Medical Qualifiers: Associated angina: with unstable angina Coronary Disease-Associated Artery/Lesion type: [place] artery [place] vs. transplanted heart: [place] heart Qualified Code(s): I25.110 - Atherosclerotic heart disease of [place] coronary artery with unstable angina pectoris Plan: Patient followed by industrial electrical engineer in [place]. His continued high-dose statin therapy, amlodipine and dual antiplatelet therapy. He is interested in establishing care with [facility] so that all of his records are in [place]. (4) Cervical radiculitis: Code(s): M54.12 - Radiculopathy, cervical region Category: Medical Plan: As per HPI patient reports having more neck pain as of late. Reports extreme stiffness and pain in his neck as of late. He did get cortisone injection recently through [facility] which has helped. He did get recent cervical spine x-ray that did show pretty severe disc disease with neuroforaminal encroachment. Will try for MRI to evaluate for any worsening disc herniation with central stenosis. He will try to continue physical therapy and [place]. (5) Rectal prolapse: Code(s): K62.3 - Rectal prolapse Category: Medical Plan: Patient reports intermittent rectal bulge to which he has been treating with warm water soaks. He denies any rectal bleeding. He would like to see rectal surgeon for evaluation. Orders: Orders Influenza [id number] Immunization Today Z23 - Encounter for immunization MR cervical spine wo con Today M54.12 - Radiculopathy, cervical region Microalbumin, Random (w Creat) Today I10 - Essential (primary) hypertension Referrals Cardiology Referral I25.110 - Atherosclerotic heart disease of [place] coronary artery with unstable angina pectoris General Surgery Referral K62.3 - Rectal prolapse
== END 2024-03-06 13:50 | disposition home or self-care (01) ==
LOC: HO.HMCH 13:09
PROVIDERS: PCP Physician Assistant; Visit Provider Physician Assistant
DX: Z00.00 Encounter for general adult medical examination without abnormal findings (principal); I10 Essential (primary) hypertension; I25.110 Atherosclerotic heart disease of native coronary artery with unstable angina pectoris; M54.12 Radiculopathy, cervical region; K62.3 Rectal prolapse; Z23 Encounter for immunization

== ENCOUNTER 2024-08-08 13:34 | Outpatient (AMB) | payer OTHER, SELFPAY ==
[2024-08-08 13:46] VITALS: BP 120/80; PULSE 83; BMI 28.0
--- NOTE | 2024-08-08 13:46 | A.OFFVIS_ITS ---
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 Required: No Allergies isosorbide [From Imdur] Adverse Reaction (Intermediate, Verified 03/06/24 13:17) Migraine metoprolol Adverse Reaction (Intermediate, Verified 03/06/24 13:17) Bradycardia Seasonal Allergies Allergy (Unknown, Uncoded 03/06/24 13:17) unknown Medication List - Last Reconciled 08/08/24 by Carroll Foss MD albuterol sulfate 90 mcg/actuation 2 puffs PO Q4H PRN amlodipine 5 mg PO DAILY atorvastatin 80 mg PO DAILY cholecalciferol (vitamin D3) 25 mcg PO DAILY coenzyme Q10 (Ultra CoQ10) 75 mg PO DAILY cyanocobalamin (vitamin B-12) 1,000 mcg PO DAILY fluoxetine 40 mg PO DAILY lisinopril 40 mg PO DAILY 90 days nitroglycerin mg sublingual DIRECTED vitamins A,C,N-ount-qklbxw 4,296 mcg-226 mg-90 mg (PreserVision AREDS) 1 cap PO BID HPI Comments Details: Thank you for referring Catalino in cardiology consultation today for management of cardiovascular disease. Patient was 69-year-old male with last year in July having a myocardial infarction undergoing urgent cardiac catheterization. Patient said he was feeling not well for 2 days with exertional fatigue and on day of the event he suddenly felt very weak and tired with heaviness in both his arms associated with central chest pressure. His neighbors called 911 and brought him to [facility] from where he was and right to [facility] for cardiac catheterization. He said he does not recall the entire event for underwent a cardiac catheterization. I reviewed the cardiac catheterization report which showed 100% proximal occlusion of the RCA with robust qzfn-ga-rxwwk collaterals, 90% D1 lesion which was left untreated due to ostial nature of the stenosis with ivvh-do-mctfrrfw disease in the LAD and moderate disease in the OM branch. He was advised to be treated medically. Was on dual antiplatelet therapy but currently is taking no antiplatelet therapy. He has stopped his aspirin as well. 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 This is unclear. However he says that he has been noticing increasing symptoms climbing a flight of stairs would get short of breath and chest pressure but mild and he was not as severe as when he had his myocardial infarction. He was stopped and the symptoms would subside. He had to take sublingual nitroglycerin wants. He has been tried on metoprolol which was stopped as reported due to bradycardia and isosorbide as reported because it caused him to have migraine headaches. He is currently taking amlodipine, high- intensity statin therapy as well as lisinopril therapy. He also complains of symptoms of shortness of breath nighttime and with diaphoresis. No associated chest pain. He is wondering whether he was sleep apnea. He has never had history of sleep apnea in the past. Otherwise remains functional. No symptoms of lightheadedness, syncope. No prolonged palpitation irregular heartbeat. [facility] Medical History Cervical spondylitis Dental root implant present Lumbar radiculopathy Surgical History History of surgery Hx of laminectomy Family History Father COPD (chronic obstructive pulmonary disease) Cirrhosis Mother CAD (coronary artery disease) CHF (congestive heart failure) Social History Housing: House Alcohol intake: never Patient Tobacco Use Status: Former Tobacco user Tobacco use type: Cigarette e-Cigarette/Vaping Use: Never Used Second Hand Smoke Exposure: No service: No Current occupational status: retired Cognitive needs: No Hearing needs: No Vision needs: No Review of Systems Const Denies chills, Denies daytime sleepiness, Denies fatigue, Denies fever(s), Denies frequent falls, Denies poor appetite, Denies snoring, Denies stops breathing during sleep, Denies weakness, Denies weight gain and Denies weight loss Eyes Denies loss of vision ENT Denies dizziness and Denies hearing loss Card Denies chest pain, Denies claudication, Denies leg edema, Denies lightheadedness, Denies palpitations, Denies dyspnea, Denies dyspnea on exertion and Denies orthopnea Resp Denies cough, Denies excessive phlegm production, Denies dyspnea, Denies dyspnea on exertion, Denies snoring and Denies wheezing GI Denies abdominal pain, Denies hematochezia, Denies change in bowel habits, Denies nausea and Denies vomiting Denies dysuria and Denies urinary frequency Musc Denies arthralgias, Denies muscle weakness, Denies numbness and Denies other (frequent falls) Skin/Breast Denies nail changes and Denies rash Neuro Denies Abnormal speech present, Denies dizziness, Denies frequent falls, Denies loss of vision, Denies memory loss, Denies numbness and Denies weakness Psych Denies depression and Denies memory loss Endo Denies fatigue and Denies palpitations Dane/Lymph Reports easy bruising and Reports other (anemia) Aller/Immun Denies wheezing Physical Exam Vital Signs: Last Vital Signs Pulse 83 08/08/24 13:46 BP 120/80 08/08/24 13:46 BMI result Body Mass Index 28.0 Const General: cooperative, comfortable, no acute distress, alert, awake and anxious Nutritional Appearance: well nourished and overweight Orientation/consciousness: patient oriented x3 Limitations: no limitations HEENT Head: Yes normocephalic and Yes atraumatic Neck Neck: Yes trachea midline, Yes supple and Yes no JVD Carotids: no bruits Resp Effort & Inspection: normal respiratory effort Auscultation: clear to auscultation bilaterally Cardio Jugular venous distension: no JVD Palpation: normal PMI Rate: regular rate Rhythm: regular rhythm Heart sounds: S1 normal heart sound present, S2 normal heart sound present, no click, no gallops, no murmurs and no rubs GI Auscultation: normal bowel sounds Skin General skin exam: no rashes or lesions noted Neuro General: patient oriented x3 and no focal motor deficits Speech: No Abnormal speech present Extrem General: Yes no clubbing, cyanosis or edema Psych Appearance: grossly normal Affect: Anxious affect present Office Procedures EKG Details: EKG shows normal sinus rhythm with normal EKG with no Q-waves 15161-[id number], Complete Assessment & Plan Assessment & Plan (1) CAD (coronary artery disease): Code(s): I25.10 - Atherosclerotic heart disease of [place] coronary artery without angina pectoris Category: Medical Qualifiers: Coronary Disease-Associated Artery/Lesion type: [place] artery [place] vs. transplanted heart: [place] heart Associated angina: with unstable angina Qualified Code(s): I25.110 - Atherosclerotic heart disease of [place] coronary artery with unstable angina pectoris Plan: Patient with coronary artery disease myocardial infarction last year undergoing cardiac catheterization which showed chronic total occlusion of the RCA with good wktm-qv-ussqk collaterals with culprit vessel felt to be the diagonal branch of the LAD which was left untreated due to ostial nature of the stenosis at 90%. Patient was been referred here for further management. He complains of symptoms that are highly concerning for exertional angina affecting his day-to-day quality of life. He has not been tolerant to isosorbide advise metoprolol therapy. Currently on amlodipine therapy. I have strongly to restart aspirin therapy at this point time given his atherosclerotic disease and burden and prior myocardial infarction. Discussed with him the pathophysiology of coronary artery disease and high risk for future cardiovascular event given his acute coronary event. He understands and agrees. Continue high-intensity statin therapy with target goal LDL less than 55 mg/dL. Advised lipid panel in near future. Given his symptoms of shortness of breath I would also suggest him to have a BNP and an echocardiogram in near future. I have taken the liberty to start him Ranexa 500 mg b.i.d. as an antianginal agent to see if it helps his symptoms. If he continues to have significant persistent exertional symptoms will need cardiac catheterization for further evaluation of interventional therapy versus coronary artery bypass grafting. This was discussed with him. He understands agrees. Will follow up with him in the clinic in 4 weeks time. Thank you for allowing me to partake in his care Orders: Orders CA echo transthoracic complete Today I25.110 - Atherosclerotic heart disease of [place] coronary artery with unstable angina pectoris B Type Natriuretic Peptide Today I25.110 - Atherosclerotic heart disease of [place] coronary artery with unstable angina pectoris Basic Metabolic Panel Today I25.110 - Atherosclerotic heart disease of [place] coronary artery with unstable angina pectoris Lipid Panel Today I25.10 - Atherosclerotic heart disease of [place] coronary artery without angina pectoris, I25.110 - Atherosclerotic heart disease of [place] coronary artery with unstable angina pectoris Medications: New ranolazine ER 500 mg PO BID 60 tabs 2RF I25.110 - Atherosclerotic heart disease of [place] coronary artery with unstable angina pectoris aspirin (Ecotrin Low Strength) 81 mg PO DAILY 30 tabs 5RF I25.110 - Atherosclerotic heart disease of [place] coronary artery with unstable angina pectoris Coding Level of Care Code New Pt Level 4 (79923) Complex EM visit Add On G2211 Diagnoses Coronary artery disease involving [place] coronary artery of [place] heart with unstable angina pectoris I25.110 Coronary Disease-Associated Artery/Lesion type: [place] artery [place] vs. transplanted heart: [place] heart Associated angina: with unstable angina CPT Codes EKG - CPT: 15588-[id number], Complete ([id number])
== END 2024-08-08 14:26 | disposition home or self-care (01) ==
LOC: HO.HCS 13:35
PROVIDERS: PCP Physician Assistant; Visit Provider Internal Medicine Cardiovascular Disease
DX: I25.110 Atherosclerotic heart disease of native coronary artery with unstable angina pectoris (principal)
CPT/HCPCS: 93010; 99204

== ENCOUNTER → 2024-08-08 13:34 | Outpatient (BNVA) | payer OTHER, SELFPAY | PROVIDERS: PCP Physician Assistant; Visit Provider Internal Medicine Cardiovascular Disease | DX: I25.110 Atherosclerotic heart disease of native coronary artery with unstable angina pectoris (principal); I25.2 Old myocardial infarction; Z87.891 Personal history of nicotine dependence | CPT/HCPCS: 93005 ==

== ENCOUNTER → 2024-08-31 08:55 | Outpatient (REF) | payer OTHER, SELFPAY ==
--- NOTE | 2024-08-31 09:00 | CA_ITS ---
Transthoracic Echocardiogram Patient (Last, First, Middle): Catalino Bowens T Gender: Male Date of : 1955 Age: 69 Procedure Date: 08/31/2024 Procedure Type: Transthoracic Echocardiogram Location: OP Height: 170. cm Weight: 81.65 kg BSA: 1.93 m2 Heart Rate: 62 bpm BP: 125 / 70 mmHg Parking Control Officer: LEE/AMANDA Referring MD: Carroll Foss MD Symptoms: I25.110 - Atherosclerotic heart disease of [place] coronary artery with u... Study Quality: Adequate ECG Rhythm: Sinus Conclusions: - The left ventricular systolic function is normal. The visually estimated ejection fraction is between 60-65%. - No obvious valvular pathology seen on this study. Findings Left Ventricle Normal left ventricular cavity size. There is normal left ventricular wall thickness. The left ventricular systolic function is normal. The visually estimated ejection fraction is between 60-65%. There is no evidence of regional wall motion abnormalities. Diastolic function is normal for age. Right Ventricle Normal right ventricular cavity size and systolic function. Atria Both atria are normal in size. Aortic Valve There is a normal trileaflet aortic valve. There is no aortic valve stenosis. There is trace (trivial) aortic valve regurgitation. Mitral Valve The mitral valve appears normal. There is mild mitral valve regurgitation. There is no mitral valve stenosis. Pulmonic Valve The pulmonic valve is likely normal. Tricuspid Valve Normal tricuspid valve structure. There is trace tricuspid valve regurgitation. There is no evidence of pulmonary hypertension. Great Vessels The asc aorta is normal in size. Venous The inferior vena cava is normal in size and collapses less than 50% with inspiration. Pericardium/Pleural There is no evidence of pericardial effusion. Prior Study Comparison No prior study available for comparison. Recommendations, Care & Conclusions No obvious valvular pathology seen on this study. Measurements 2D Linear Measurements IVSd: 1.02 0.6-0.9/0.6-1.0 cm LVIDd: 4.68 3.9-5.3/4.2-5.9 cm LVIDd Index: 2.42 2.4-3.2/2.2-3.1 cm/m2 LVIDs: 2.92 2.0-3.6 cm LVPWd: 0.95 0.7-1.1 cm LA Diam: 3.50 2.7-3.8/3.0-4.0 cm LAIDs Index: 1.81 1.5-2.3 cm/m2 LV Mass: 199.65 67-162/88-224 g LV Mass Index: 103.45 43-95/49-115 g/m2 LVOT Diam: 2.00 3.0+(-)1.3 cm 2D Systolic Function EF 4C: 71.60 >55% EF 2C: 62.20 >55% EF BiP: 67.90 >55% Mitral Valve MV Pk E: 1.07 MV PK A: 1.08 MV Decel Time: 186.00 E/A: 1.00 E'Lateral: 9.68 E'Medial: 6.20 E/E' Med: 17.30 E/E' Lat: 11.10 PHT: 54.00 MVA PHT: 4.07 Decel [place]: 5.74 Aortic Valve AoV Pk Chris: 1.44 AoV Mn Chris: 1.07 AoV VTI: 0.34 AoV Pk Grad: 8.00 Aov Mn Grad: 5.00 JITENDRA Cont.VTI: 2.50 LVOT LVOT Pk Chris: 1.22 LVOT Mn Chris: 0.82 LVOT VTI: 0.27 LVOT Pk Grad: 6.00 LVOT Mn Grad: 3.00 LVOT Diam: 2.00 LVOT Area: 3.14 Diastolic Function MV Pk E: 1.07 MV Pk A: 1.08 E/A: 1.00 E'Medial: 6.20 E/E' Med: 17.30 E' Laterial: 9.68 E/E' Lat: 11.10 Right Ventricle TAPSE (mm): 22.60 TVS' Chris: 10.60 Tricuspid Valve TR Pk Chris: 2.20 TR Pk Grad: 19.00 RA Press: 3.00 RVSP: 22.00 Great Vessels Aorta Sinus of Valsalva: 3.10 2.0-3.5 cm Ao Asc: 3.00 2.1-3.4 cm Ao Arch: 3.80 Pulmonary Valve PV Pk Chris: 0.90 Peak PV Grad: 3.00 Updated in Other Vendor System with Status of Final Reese Martinez MD electronically signed on 09/02/2024 11:24:48 AM with status of Final
[2024-08-31 10:15] LABS: B Type Natriuretic Peptide 132 pg/mL (<100)
[2024-08-31 10:21] LABS: Anion Gap 9 (12-20); Blood Urea Nitrogen 31 mg/dL (9-16); Calcium 9.6 mg/dL (8.4-10.2); Carbon Dioxide 30 mmol/L (22-29); Chloride 106 mmol/L (96-108); Cholesterol 145 mg/dL (<200); Estimated Glomerular Filt Rate > 60; Glucose Random 93 mg/dL (60-115); HDL Cholesterol 47 mg/dL (>40); LDL Cholesterol Calculated 80 mg/dL (<100); Potassium 4.6 mmol/L (3.3-5.1); Sodium 140 mmol/L (135-145); Triglycerides 92 mg/dL (<150)
== END ==
LOC: HO.CARD 08:55
PROVIDERS: Absent Provider Physician Assistant; PCP Physician Assistant; Visit Provider Internal Medicine Cardiovascular Disease
DX: I25.110 Atherosclerotic heart disease of native coronary artery with unstable angina pectoris (principal)
CPT/HCPCS: 36415; 80048; 80061; 83880; 93306

== ENCOUNTER → 2024-08-31 09:00 | Outpatient (BNV) | payer OTHER, SELFPAY | PROVIDERS: Absent Provider Physician Assistant; PCP Physician Assistant; Visit Provider Internal Medicine | DX: I35.1 Nonrheumatic aortic (valve) insufficiency (principal); I34.0 Nonrheumatic mitral (valve) insufficiency | CPT/HCPCS: 93306 ==

== ENCOUNTER 2024-09-04 10:18 | Outpatient (REF) | payer OTHER, SELFPAY ==
[2024-09-04 12:22] LABS: Hematocrit 42.6 % (42.0-52.0); Hemoglobin 14.5 g/dl (14.0-18.0); Mean Corpuscular Hemoglobin 29.8 pg (27.0-33.0); Mean Corpuscular Volume 87.7 fL (80.0-98.0); Mean Platelet Volume 10.6 fL (9.4-12.4); Platelet Count 219 X10*3/uL (160-400); Red Blood Count 4.86 X10*6/uL (4.60-5.80); Red Cell Distribution Width 13.2 % (11.0-16.0); White Blood Count 8.8 X10*3/uL (4.8-10.8)
[2024-09-04 12:39] LABS: Alanine Aminotransferase 28 U/L (0-40); Albumin Level 4.5 g/dL (3.5-5.0); Alkaline Phosphatase 141 U/L (39-117); Anion Gap 13 (12-20); Aspartate Amino Transferase 28 U/L (5-37); Blood Urea Nitrogen 23 mg/dL (9-16); Calcium 9.5 mg/dL (8.4-10.2); Carbon Dioxide 26 mmol/L (22-29); Chloride 105 mmol/L (96-108); Cholesterol 117 mg/dL (<200); Estimated Glomerular Filt Rate > 60; Glucose Fasting 99 mg/dL (60-99); HDL Cholesterol 41 mg/dL (>40); LDL Cholesterol Calculated 58 mg/dL (<100); Potassium 4.5 mmol/L (3.3-5.1); Sodium 139 mmol/L (135-145); Total Protein 7.3 g/dL (6.5-8.0); Triglycerides 92 mg/dL (<150)
[2024-09-04 12:54] LABS: Creatinine Urine 152.05 mg/dL; Microalbum/Creatinine Ratio Ur 12.4 ug/mg cr (<30)
[2024-09-04 12:55] LABS: Vitamin D 25-OH Total 71.4 ng/mL (>30)
[2024-09-04 13:00] LABS: Appearance Urine Clear; Color Urine Dark Yellow; Glucose Urine UA Negative (Negative); Leukocyte Esterase Urine Small (1+) (Negative); Nitrite Urine Negative (Negative); PH 5.5 (5.0-9.0); UMIC TRIGGER UACC YES; Urine Blood Negative (Negative); Urine Ketones Trace mg/dL (Negative); Urine Protein Negative (Neg-Trace)
[2024-09-04 14:15] LABS: Bacteria Urine None Seen (None Seen); Hyaline Casts Urine 0-2 /LPF (0-2); RBC Urine 0-2 /HPF (0-2); Squamous Epithelial Cell Urine 0-2 /HPF (0-2); UACC Culture Trigger YES
== END 2024-09-04 10:19 | disposition home or self-care (01) ==
LOC: HO.LAB 10:18
PROVIDERS: PCP Physician Assistant; Visit Provider Physician Assistant
DX: I10 Essential (primary) hypertension (principal); I25.110 Atherosclerotic heart disease of native coronary artery with unstable angina pectoris; L98.9 Disorder of the skin and subcutaneous tissue, unspecified; L75.0 Bromhidrosis; E78.2 Mixed hyperlipidemia; R30.0 Dysuria; Z79.02 Long term (current) use of antithrombotics/antiplatelets; Z79.899 Other long term (current) drug therapy
CPT/HCPCS: 36415; 80053; 80061; 81001; 81003; 82043; 82306; 82570; 85027; 87086; 93005; 96127

== ENCOUNTER 2024-09-04 10:18 | Outpatient (AMB) | payer OTHER, SELFPAY ==
--- NOTE | 2024-09-04 10:34 | A.OFFPC_ITS ---
Vital Signs 09/04/24 10:36 Height 5 ft 9 in Weight 182 lb 8 oz BMI 26.9 BP 130/70 Blood Pressure Location Lt brachial Position Sitting Pulse 65 Pulse Source Pulse Oximeter Temp 97.3 F Temp Source Temporal Artery Scan Pulse Oximetry (%) 98 Oxygen Delivery Method Room Air Intake Visit Reasons: f/u CAD/ HTN Intake Note: Patient is here to follow up on CAD, HTN. 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 Manager Policy: Not Required per policy Accompanied by: Self / Same As Patient Allergies isosorbide [From Imdur] Adverse Reaction (Intermediate, Verified 09/04/24 11:13) Migraine metoprolol Adverse Reaction (Intermediate, Verified 09/04/24 11:13) Bradycardia Seasonal Allergies Allergy (Unknown, Uncoded 09/04/24 11:13) unknown Medication List - Last Reconciled 09/04/24 by Diogenes Murdock PA-C albuterol sulfate 90 mcg/actuation 2 puffs PO Q4H PRN amlodipine 5 mg PO DAILY aspirin (Ecotrin Low Strength) 81 mg PO DAILY atorvastatin 80 mg PO DAILY cholecalciferol (vitamin D3) 25 mcg PO DAILY coenzyme Q10 (Ultra CoQ10) 75 mg PO DAILY cyanocobalamin (vitamin B-12) 1,000 mcg PO DAILY ezetimibe 10 mg PO DAILY fluoxetine 40 mg PO DAILY lisinopril 40 mg PO DAILY 90 days nitroglycerin mg sublingual DIRECTED ranolazine ER 500 mg PO BID triamcinolone acetonide 0.1% 1 appl topical DAILY 30 days vitamins A,C,H-jjnz-rypbau 4,296 mcg-226 mg-90 mg (PreserVision AREDS) 1 cap PO BID Tobacco use date assessed: 09/04/24 Fall risk assessment: 1 Fall in past year (09/01/24) Last assessed Fall Risk: 09/04/24 Dental Screening Dental Screen Date: 09/04/24 Did you have a dental visit in the last 12 months?: Yes Did you have a dental problem in the last 6 months where you did not have access to dental care?: No Was dental information given to patient?: Patient has dentist HPI f/u CAD/ HTN HPI Details Patient is a 69 y/o M here today for a follow-up visit Pmhx of HLD, HTN, ONEYDA,, allergic rhinitis, cervical disc disease Concern--> he reports over the past few weeks having an odor to his urine. PLAN: Will send for urinalysis to evaluate for UTI \ Coronary artery disease-- > interval history--> Patient was seen at [facility] for acute chest pain. His troponins were negative, EKG was non ischemic. He was transferred to [facility] for cardiac catheterization which showed Complete block of RCA .. He unfortunately had bradycardia due to metoprolol and was unable to tolerate Imdur due to headaches. Has now finished cardiac rehab and has done really well. At this time he is going to be medically managed for his coronary artery disease. He is now followed by [facility] and recently got an echocardiogram showing normal ejection fraction at 60%. He continues to feel quite lethargic daily. His Imdur and metoprolol has been discontinued due to side effects .. Cervical spine disease: Recently neck pain and decreased range of motion/stiffness in his neck. Did go see [facility] and received cortisone injections which did help. His x-ray does show pretty severe neural foraminal encroachment. Of note===> Has had a laminectomy in 1980s. . Anxiety: Patient's anxiety has been elevated as of late due to his new heart condition. He is interested in increasing his fluoxetine dose to 40 mg. Laboratory Tests 03/06/24 08/31/24 14:07 09:10 Creatinine 1.05 0.90 B-Natriuretic Pept asa 132 H LDL Cholesterol, C alc 74 80 Cholesterol 145 PFSH Medical History Cervical spondylitis Dental root implant present Lumbar radiculopathy Surgical History History of surgery Hx of laminectomy Family History Father COPD (chronic obstructive pulmonary disease) Cirrhosis Mother CAD (coronary artery disease) CHF (congestive heart failure) Social History Housing: House Alcohol intake: never Patient Tobacco Use Status: Former Tobacco user Tobacco use type: Cigarette e-Cigarette/Vaping Use: Never Used Second Hand Smoke Exposure: Yes service: No Current occupational status: retired Cognitive needs: No Hearing needs: No Vision needs: No Questionnaire PHQ-9 Over the last 2 weeks, how often have you been bothered by any of the following problems? 1. Little interest or pleasure in doing things: nearly every day 2. Feeling down, depressed, or hopeless: not at all 3. Trouble falling or staying asleep, or sleeping too much: not at all 4. Feeling tired or having little energy: not at all 5. Poor appetite or overeating: not at all 6. Feeling bad about yourself - or that you are a failure or have let yourself or your family down: not at all 7. Trouble concentrating on things, such as reading the newspaper or watching television: not at all 8. Moving or speaking so slowly that other people could have noticed. Or the opposite - being so fidgety or restless that you have been moving around a lot more than usual: not at all 9. Thoughts that you would be better off or of hurting yourself in some way: not at all Total score: 3 Depression Screening Interpretation: Positive Depression Screening Follow-up: Existing condition Depression Screening Done: Yes 48443 - PHQ-9 Billing: Yes Source: Developed by Drs. Chan Mclaughlin, Maeve Gibson, Damir Hawkins and colleagues, with an educational taya from [employer]. Thrive Questionnaire Date Thrive assessed: 09/04/24 I am a: Patient What is your living situation today?: I have a steady place to live Within the past 12 months, did the food you bought not last and you didn't have the money to get more?: Sometimes True Within the past 12 months, did you worry whether your food would run out before you got money to buy more?: Sometimes True Do you have trouble paying for medicines?: No Do you have trouble getting transportation to medical appointments?: No Do you have trouble paying your heating and electricity bill?: No Do you have trouble taking care of your child, family member or friend?: No Do you have trouble with day-to-day activities such as bathing, preparing meals, shopping, managing finances, etc.?: No Are you currently unemployed and looking for a job?: No Are you interested in more education?: No THRIVE Score: 2 AUDIT C Alcohol Use Questionnaire (AUDIT-C) 1. How often do you have a drink containing alcohol?: Never Total Score: 0 ONEYDA-7 AMB Questionnaire ONEYDA-7 Date ONEYDA - 7 assessed: 09/04/24 Feeling nervous, anxious, or on edge: 0 = Not at all Not being able to stop or control worryin = Not at all Worrying too much about different things: 0 = Not at all Trouble relaxin = Not at all Being so restless that it is hard to sit still: 0 = Not at all Becoming easily annoyed or irritable: 0 = Not at all Feeling afraid as if something awful might happen: 0 = Not at all Total ONEYDA-7 score (0-4 normal; 5-9 mild; 10-14 moderate; 15-21 severe): 0 Source: Developed by Drs. Chan Mclaughlin, Maeve Gibson, Damir Hawkins and colleagues, with an educational taya from [employer]. ONEYDA-7 Assessment Billing ONEYDA-7 Assessment Tool: ONEYDA-7 Assessment 58991 Review of Systems Const Reports fatigue and Denies headache(s) Eyes Denies loss of vision ENT Denies vertigo, Denies dizziness, Denies headache(s) and Denies sore throat Card Denies chest pain, Denies leg edema and Denies lightheadedness Resp Denies cough, Denies hemoptysis and Denies wheezing GI Denies abdominal pain, Denies melena, Denies constipation, Denies diarrhea and Denies vomiting Denies dysuria, Denies urinary frequency and Denies urinary urgency Musc Denies arthralgias, Denies joint swelling, Denies numbness and Denies tingling Neuro Denies Abnormal speech present, Denies behavioral changes, Denies vertigo, Denies dizziness, Denies headache(s), Denies loss of vision, Denies memory loss, Denies numbness and Denies tingling Psych Denies anxiety, Denies behavioral changes, Denies depression, Denies memory loss and Denies panic attacks Endo Reports fatigue Dane/Lymph Denies easy bleeding and Denies easy bruising Aller/Immun Denies wheezing Physical exam (Primary Care) Vital Signs: Last Vital Signs Temp 97.3 F 09/04/24 10:36 Pulse 65 09/04/24 10:36 BP 130/70 09/04/24 10:36 Pulse Ox 98 09/04/24 10:36 Oxygen Delivery Method Room Air 09/04/24 10:36 BMI result Body Mass Index 26.9 Tobacco/Smoking Status: Tobacco use Status Tobacco use date assessed 09/04/24 09/04/24 10:41 Patient Tobacco Use Status Former Tobacco user 09/04/24 10:41 Tobacco use type Cigarette 09/04/24 10:41 e-Cigarette/Vaping Use Never Used 09/04/24 10:41 PHQ-9: PHQ-9 Score PHQ-9: Total score 3 09/04/24 10:58 Depression Screening Interpretation: Positive Depression Screening Follow-up: Existing condition Thrive Assessment: Date of Thrive Assessment Date Thrive assessed 09/04/24 09/04/24 10:41 Const General: healthy appearing, no acute distress, alert and awake Nutritional Appearance: well nourished Orientation/consciousness: oriented to person, oriented to place and oriented to time HENMT Ears: TM's normal bilaterally General nose exam: Normal nasal mucous membranes and turbinates present Eyes Conjunctivae: conjunctivae normal Sclerae: sclerae normal Pupils: Equal, round and reactive pupils present Neck Neck: Yes no lymphadenopathy and Yes no JVD Thyroid: Thyroid normal Carotids: no bruits Resp Effort & Inspection: normal respiratory effort and not tachypneic Auscultation: no crackles, no rales, no rhonchi and no wheezes Cardio Rate: regular rate Rhythm: regular rhythm Heart sounds: no murmurs and normal S1 and S2 GI Palpation (GI): Soft to palpation, nontender, no hepatomegaly and no splenomegaly Auscultation: normal bowel sounds Skin General skin exam: no rashes or lesions noted and dry skin Neuro General: oriented to person, oriented to place and oriented to time Cranial nerves: Yes Equal, round and reactive pupils present Speech: No Abnormal speech present Gait exam (Neuro): Normal gait present Motor exam (neuro): no tremor noted Extrem Right upper extremity: full ROM Left upper extremity: full ROM Right lower extremity: full ROM; no edema Left lower extremity: full ROM; no edema Psych Mental Status: mental status grossly normal Speech and movement: Normal speech and movement present Affect: normal affect Attitude: cooperative Thought process: Normal thought process present Coding Level of Care Code Est Pt Level 4 (58681) Diagnoses Essential hypertension I10 Hypertension type: essential hypertension Coronary artery disease involving [place] coronary artery of [place] heart with unstable angina pectoris I25.110 Associated angina: with unstable angina Coronary Disease-Associated Artery/Lesion type: [place] artery [place] vs. transplanted heart: [place] heart Skin lesion L98.9 Urinary body odor L75.0 Additional Codes PHQ-9 - 72253 - PHQ-9 Billing: Yes ([id number]) ONEYDA-7 Assessment Billing - ONEYDA-7 Assessment Tool: ONEYDA-7 Assessment 78695 ([id number]) Assessment & Plan Assessment & Plan (1) HTN (hypertension): Code(s): I10 - Essential (primary) hypertension Category: Medical Qualifiers: Hypertension type: essential hypertension Qualified Code(s): I10 - Essential (primary) hypertension Plan: Patient's blood pressure acceptable today in office. Will continue his current dose of antihypertensive medication with goal blood pressure to be below 140/90 (2) CAD (coronary artery disease): Code(s): I25.10 - Atherosclerotic heart disease of [place] coronary artery without angina pectoris Category: Medical Qualifiers: Associated angina: with unstable angina Coronary Disease-Associated Artery/Lesion type: [place] artery [place] vs. transplanted heart: [place] heart Qualified Code(s): I25.110 - Atherosclerotic heart disease of [place] coronary artery with unstable angina pectoris Plan: Patient now followed by [facility]. He has recently started additional cholesterol medications Zetia. His continued high-dose statin therapy, amlodipine and dual antiplatelet therapy. Most recent LDL at 80 He is interested in establishing care with [facility] so that all of his records are in [place]. (3) Skin lesion: Code(s): L98.9 - Disorder of the skin and subcutaneous tissue, unspecified Category: Medical Plan: Has noted a skin lesion in his abdomen that has been burning and itching. 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
[2024-09-04 10:36] VITALS: BP 130/70; PULSE 65; TEMP 36.3; O2SAT 98; BMI 26.9
== END 2024-09-04 11:19 | disposition home or self-care (01) ==
LOC: HO.HMCH 10:19
PROVIDERS: PCP Physician Assistant; Visit Provider Physician Assistant
DX: I10 Essential (primary) hypertension (principal); I25.110 Atherosclerotic heart disease of native coronary artery with unstable angina pectoris; L98.9 Disorder of the skin and subcutaneous tissue, unspecified; L75.0 Bromhidrosis

== ENCOUNTER 2024-09-04 14:13 | Outpatient (AMB) | payer OTHER, SELFPAY ==
[2024-09-04 14:45] VITALS: BP 120/70; PULSE 66; BMI 27.0
--- NOTE | 2024-09-04 14:45 | MHC.OFFVIS ---
Vital Signs 09/04/24 14:45 Height 5 ft 9 in Weight 182 lb 15.739 oz BMI 27.0 BP 120/70 Blood Pressure Location Lt brachial Position Sitting Pulse 66 Intake Visit Reasons: 1 mth f/up labs echo per ns Intake Note: 1 month follow-up echo c/o fatigue Quantitative Strategy Analyst Required: No Allergies isosorbide [From Imdur] Adverse Reaction (Intermediate, Verified 09/04/24 11:13) Migraine metoprolol Adverse Reaction (Intermediate, Verified 09/04/24 11:13) Bradycardia Seasonal Allergies Allergy (Unknown, Uncoded 09/04/24 11:13) unknown Medication List - Last Reconciled 09/04/24 by Carroll Foss MD albuterol sulfate 90 mcg/actuation 2 puffs PO Q4H PRN amlodipine 5 mg PO DAILY aspirin (Ecotrin Low Strength) 81 mg PO DAILY atorvastatin 80 mg PO DAILY cholecalciferol (vitamin D3) 25 mcg PO DAILY coenzyme Q10 (Ultra CoQ10) 75 mg PO DAILY cyanocobalamin (vitamin B-12) 1,000 mcg PO DAILY ezetimibe 10 mg PO DAILY fluoxetine 40 mg PO DAILY lisinopril 40 mg PO DAILY 90 days nitroglycerin mg sublingual DIRECTED ranolazine ER 500 mg PO BID triamcinolone acetonide 0.1% 1 appl topical DAILY 30 days vitamins A,C,X-vahq-nknwhm 4,296 mcg-226 mg-90 mg (PreserVision AREDS) 1 cap PO BID HPI Comments Details: Catalino comes for follow-up. Recent echocardiogram shows normal structure of the heart with normal LV ejection fraction without regional wall motion abnormality. He was symptoms of chest pain have improved on Ranexa therapy. He is tolerating that well. Denies any lightheadedness, syncope, headaches. Says complains of fatigue. He has not been exercising much. Denies any bleeding issues or neurologic events. [facility] Medical History Cervical spondylitis Dental root implant present Lumbar radiculopathy Surgical History History of surgery Hx of laminectomy Family History Father COPD (chronic obstructive pulmonary disease) Cirrhosis Mother CAD (coronary artery disease) CHF (congestive heart failure) Social History Housing: House Alcohol intake: never Patient Tobacco Use Status: Former Tobacco user Tobacco use type: Cigarette e-Cigarette/Vaping Use: Never Used Second Hand Smoke Exposure: Yes service: No Current occupational status: retired Cognitive needs: No Hearing needs: No Vision needs: No Review of Systems Const Denies chills, Reports fatigue, Denies fever(s), Denies frequent falls, Denies weakness, Denies weight gain and Denies weight loss ENT Denies dizziness Card Denies chest pain, Denies leg edema, Denies lightheadedness, Denies palpitations, Denies dyspnea, Denies dyspnea on exertion, Denies orthopnea and Denies other (loss of consciousness) Resp Denies cough, Denies dyspnea and Denies dyspnea on exertion GI Denies hematochezia and Denies change in stool character Musc Denies abnormal gait, Denies muscle weakness, Denies numbness, Denies radiating pain into limb and Denies tingling Neuro Denies Abnormal speech present, Denies abnormal gait, Denies dizziness, Denies frequent falls, Denies numbness, Denies tingling and Denies weakness Endo Reports fatigue and Denies palpitations Physical Exam Vital Signs: Last Vital Signs Pulse 66 09/04/24 14:45 BP 120/70 09/04/24 14:45 BMI result Body Mass Index 27.0 Const General: cooperative, comfortable, no acute distress, alert, awake and anxious Nutritional Appearance: well nourished and overweight Orientation/consciousness: patient oriented x3 Limitations: no limitations HEENT Head: Yes normocephalic and Yes atraumatic Neck Neck: Yes trachea midline, Yes supple and Yes no JVD Carotids: no bruits Resp Effort & Inspection: normal respiratory effort Auscultation: clear to auscultation bilaterally Cardio Jugular venous distension: no JVD Palpation: normal PMI Rate: regular rate Rhythm: regular rhythm Heart sounds: S1 normal heart sound present, S2 normal heart sound present, no click, no gallops, no murmurs and no rubs GI Auscultation: normal bowel sounds Skin General skin exam: no rashes or lesions noted Neuro General: patient oriented x3 and no focal motor deficits Speech: No Abnormal speech present Extrem General: Yes no clubbing, cyanosis or edema Psych Appearance: grossly normal Affect: Anxious affect present Office Procedures EKG Details: EKG shows normal sinus rhythm normal EKG [id number], Complete Assessment & Plan Assessment & Plan (1) CAD (coronary artery disease): Code(s): I25.10 - Atherosclerotic heart disease of [place] coronary artery without angina pectoris Category: Medical Qualifiers: Coronary Disease-Associated Artery/Lesion type: [place] artery [place] vs. transplanted heart: [place] heart Associated angina: with unstable angina Qualified Code(s): I25.110 - Atherosclerotic heart disease of [place] coronary artery with unstable angina pectoris Plan: CAD with significant branch vessel disease as well as chronic total occlusion but without any affection of his LV systolic function without any new regional wall motion abnormality. He has symptoms of angina have improved on ranolazine as well as amlodipine therapy. Continue the same. Continue to participate in physical activity as tolerated. Continue low-dose aspirin therapy for life. Continue high-intensity statin therapy along with ezetimibe with target goal LDL less than 60 mg/dL. No interventional therapy indicated at this point time as his coronary artery disease stable (2) HTN (hypertension): Code(s): I10 - Essential (primary) hypertension Category: Medical Qualifiers: Hypertension type: essential hypertension Qualified Code(s): I10 - Essential (primary) hypertension Plan: Hypertension which is currently well optimized on current therapy with amlodipine and lisinopril. Importance of good blood pressure control was discussed. Continue to take medications. Target goal blood pressure less than 130/84. Advised to monitor blood pressure at home maintain a log. Follow up in the clinic in 6 months time, sooner p.r.n.. Thank you for me to partake in his care Coding Level of Care Code Est Pt Level 4 (77662) Complex EM visit Add On G2211 Diagnoses Coronary artery disease involving [place] coronary artery of [place] heart with unstable angina pectoris I25.110 Coronary Disease-Associated Artery/Lesion type: [place] artery [place] vs. transplanted heart: [place] heart Associated angina: with unstable angina Essential hypertension I10 Hypertension type: essential hypertension CPT Codes EKG - CPT: 12818-[id number], Complete ([id number])
== END 2024-09-04 15:47 | disposition home or self-care (01) ==
LOC: HO.HCS 14:14
PROVIDERS: PCP Physician Assistant; Visit Provider Internal Medicine Cardiovascular Disease
DX: I25.110 Atherosclerotic heart disease of native coronary artery with unstable angina pectoris (principal); I10 Essential (primary) hypertension
CPT/HCPCS: 93010; 99214

== ENCOUNTER 2024-11-22 09:29 | Outpatient (REF) | payer OTHER, SELFPAY ==
--- OUTSIDE RECORDS SUMMARY | 2024-11-22 09:55 | XMS_ITS | Patient Health Record ---
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
[2024-11-22 11:10] LABS: B Type Natriuretic Peptide 36 pg/mL (<100)
[2024-11-22 11:28] LABS: Anion Gap 12 (12-20); Blood Urea Nitrogen 28 mg/dL (9-16); Calcium 9.9 mg/dL (8.4-10.2); Carbon Dioxide 27 mmol/L (22-29); Chloride 105 mmol/L (96-108); Cholesterol 120 mg/dL (<200); Estimated Glomerular Filt Rate > 60; HDL Cholesterol 43 mg/dL (>40); Potassium 5.2 mmol/L (3.3-5.1); Sodium 139 mmol/L (135-145); Triglycerides 91 mg/dL (<150)
== END 2024-11-22 09:30 | disposition home or self-care (01) ==
LOC: HO.LAB 09:29
PROVIDERS: PCP Physician Assistant; Visit Provider Internal Medicine Cardiovascular Disease
DX: I25.110 Atherosclerotic heart disease of native coronary artery with unstable angina pectoris (principal); I10 Essential (primary) hypertension; E78.2 Mixed hyperlipidemia
CPT/HCPCS: 36415; 80048; 80061; 83880

== ENCOUNTER 2025-03-07 13:22 | Outpatient (AMB) | payer OTHER, SELFPAY ==
[2025-03-07 13:26] VITALS: BP 130/66; PULSE 73; TEMP 36.2; O2SAT 98; BMI 28.4
--- NOTE | 2025-03-07 13:26 | MHC.PC.OV ---
Vital Signs 03/07/25 13:26 Height 5 ft 9 in Weight 192 lb 8 oz BMI 28.4 BP 130/66 Blood Pressure Location Lt brachial Position Sitting Pulse 73 Pulse Source Pulse Oximeter Temp 97.1 F Temp Source Temporal Artery Scan Pulse Oximetry (%) 98 Oxygen Delivery Method Room Air Intake Visit Reasons: Annual Exam - see comments Allergies isosorbide (From Imdur) Adverse Reaction (Intermediate, Verified 03/07/25 13:35) Migraine metoprolol Adverse Reaction (Intermediate, Verified 03/07/25 13:35) Bradycardia Seasonal Allergies Allergy (Unknown, Uncoded 03/07/25 13:35) unknown Medication List - Last Reconciled 03/07/25 by Diogenes Murdock PA-C albuterol sulfate 90 mcg/actuation 2 puffs PO Q4H PRN amlodipine 5 mg PO DAILY aspirin (Ecotrin Low Strength) 81 mg PO DAILY atorvastatin 80 mg PO DAILY cholecalciferol (vitamin D3) 25 mcg PO DAILY coenzyme Q10 (Ultra CoQ10) 75 mg PO DAILY cyanocobalamin (vitamin B-12) 1,000 mcg PO DAILY ezetimibe 10 mg PO DAILY fluoxetine 40 mg PO DAILY hydroxyzine HCl 20 mg (2 x 10 mg) PO BEDTIME 15 days ipratropium bromide 2 sprays intranasal BID 4 weeks lidocaine 5% 1 patch topical DAILY 30 days lisinopril 40 mg PO DAILY 90 days nitroglycerin 0.4 mg sublingual DIRECTED ranolazine ER 500 mg PO BID triamcinolone acetonide 0.1% 1 appl topical DAILY 30 days vitamins A,C,G-btnz-dltqbq 4,296 mcg-226 mg-90 mg (PreserVision AREDS) 1 cap PO BID Tobacco use date assessed: 03/07/25 Fall risk assessment: No Falls in past year Last assessed Fall Risk: 03/07/25 Dental Screening Dental Screen Date: 03/07/25 Did you have a dental visit in the last 12 months?: Yes Did you have a dental problem in the last 6 months where you did not have access to dental care?: No Was dental information given to patient?: Patient has dentist HPI Annual Exam - see comments HPI Details Patient is a 70 y/o M here today for a annual physical Pmhx of HLD, HTN, ONEYDA,, allergic rhinitis, cervical disc disease Coronary artery disease-- > followed by [facility], is willing to do fasting labs 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 He continues on high potency statin with ezetimibe side in addition. He reports no chest pain dizziness or heart palpitations. .. Sinusiits : Patient reports over last 2 weeks having sinus congestion to which he has been using [id number] remedies which have somewhat reduced his symptoms. He usually gets a sinus infection around this time a year and azithromycin tends to clear it up. .. Cervical spine disease: Recently neck pain and decreased range of motion/stiffness in his neck. Did go see [facility] and received cortisone injections which did help. His x-ray does show pretty severe neural foraminal encroachment. Of note===> Has had a laminectomy in . . Anxiety: Patient's anxiety has been elevated as of late due to his new heart condition. He is interested in increasing his fluoxetine dose to 40 mg Colon cancer screening: Has done Cologuard in 2023- Neg repeat 3 years- Vaccine: Up-to-date with COVID, pneumonia, tetanus and flu vaccine. Declines shingles vaccine [facility] Medical History Cervical spondylitis Dental root implant present Lumbar radiculopathy Surgical History History of surgery Hx of laminectomy Family History (Updated 03/07/25 @ 13:40 by Diogenes Murdock PA-C) Father COPD (chronic obstructive pulmonary disease) Cirrhosis Mother CAD (coronary artery disease) CHF (congestive heart failure) Brother CAD (coronary artery disease) Social History Housing: House Alcohol intake: never Patient Tobacco Use Status: Former Tobacco user Tobacco use type: Cigarette e-Cigarette/Vaping Use: Never Used Second Hand Smoke Exposure: Yes service: No Current occupational status: retired Cognitive needs: No Hearing needs: No Vision needs: No Questionnaire PHQ-9 Over the last 2 weeks, how often have you been bothered by any of the following problems? 1. Little interest or pleasure in doing things: nearly every day 2. Feeling down, depressed, or hopeless: not at all 3. Trouble falling or staying asleep, or sleeping too much: not at all 4. Feeling tired or having little energy: not at all 5. Poor appetite or overeating: not at all 6. Feeling bad about yourself - or that you are a failure or have let yourself or your family down: not at all 7. Trouble concentrating on things, such as reading the newspaper or watching television: not at all 8. Moving or speaking so slowly that other people could have noticed. Or the opposite - being so fidgety or restless that you have been moving around a lot more than usual: not at all 9. Thoughts that you would be better off or of hurting yourself in some way: not at all Total score: 3 Depression Screening Interpretation: Positive Depression Screening Follow-up: Existing condition Depression Screening Done: Yes 45116 - PHQ-9 Billing: Yes Source: Developed by Drs. Chan Mclaughlin, Maeve Gibson, Damir Hawkins and colleagues, with an educational taya from [employer]. Thrive Questionnaire Date Thrive assessed: 09/04/24 I am a: Patient What is your living situation today?: I have a steady place to live Within the past 12 months, did the food you bought not last and you didn't have the money to get more?: Sometimes True Within the past 12 months, did you worry whether your food would run out before you got money to buy more?: Sometimes True Do you have trouble paying for medicines?: No Do you have trouble getting transportation to medical appointments?: No Do you have trouble paying your heating and electricity bill?: No Do you have trouble taking care of your child, family member or friend?: No Do you have trouble with day-to-day activities such as bathing, preparing meals, shopping, managing finances, etc.?: No Are you currently unemployed and looking for a job?: No Are you interested in more education?: No Please select the resources that you would like help with: None Currently or been in a relationship where the following occur: No concerns reported THRIVE Score: 2 AUDIT C Alcohol Use Questionnaire (AUDIT-C) 1. How often do you have a drink containing alcohol?: Never 3. How often do you have six or more drinks on one occasion?: Never Total Score: 0 ONEYDA-7 AMB Questionnaire ONEYDA-7 Date ONEYDA - 7 assessed: 09/04/24 Feeling nervous, anxious, or on edge: 0 = Not at all Not being able to stop or control worryin = Not at all Worrying too much about different things: 0 = Not at all Trouble relaxin = Not at all Being so restless that it is hard to sit still: 0 = Not at all Becoming easily annoyed or irritable: 0 = Not at all Feeling afraid as if something awful might happen: 0 = Not at all Total ONEYDA-7 score (0-4 normal; 5-9 mild; 10-14 moderate; 15-21 severe): 0 Source: Developed by Drs. Chan Mclaughlin, Maeve Gibson, Damir Hawkins and colleagues, with an educational taya from [employer]. Review of Systems Const Denies body aches, Denies chills, Denies excessive sweating, Denies fatigue, Denies fever(s) and Denies headache(s) Eyes Denies blurry vision ENT Denies dysphagia, Denies vertigo, Denies dizziness, Denies headache(s), Denies hearing loss and Denies tinnitus Card Denies chest pain, Denies chest pain with activity, Denies syncope, Denies irregular heart rhythm and Denies dyspnea Resp Denies chest congestion, Denies cough, Denies hemoptysis, Denies dyspnea and Denies wheezing GI Denies abdominal pain, Denies melena, Denies hematochezia, Denies coffee ground emesis, Denies dysphagia, Denies diarrhea, Denies nausea and Denies vomiting Denies difficulty urinating, Denies dysuria, Denies urinary frequency, Denies urinary hesitancy and Denies urinary urgency Musc Denies arthralgias, Denies limited range of motion, Denies muscle cramps and Denies muscle weakness Skin/Breast Denies rash and Denies skin ulcer Neuro Denies Abnormal speech present, Denies confusion, Denies vertigo, Denies dizziness, Denies syncope, Denies headache(s), Denies memory loss and Denies seizure-like activity Psych Denies anxiety, Denies confusion, Denies depression, Denies memory loss, Denies panic attacks and Denies paranoia Endo Denies excessive sweating, Denies fatigue, Denies flushing, Denies polydipsia and Denies polyuria Aller/Immun Denies wheezing Physical exam (Primary Care) Vital Signs: Last Vital Signs Temp 97.1 F 03/07/25 13:26 Pulse 73 03/07/25 13:26 BP 130/66 03/07/25 13:26 Pulse Ox 98 03/07/25 13:26 Oxygen Delivery Method Room Air 03/07/25 13:26 BMI result Body Mass Index 28.4 Tobacco/Smoking Status: Tobacco use Status Tobacco use date assessed 03/07/25 03/07/25 13:32 Patient Tobacco Use Status Former Tobacco user 03/07/25 13:32 Tobacco use type Cigarette 03/07/25 13:32 e-Cigarette/Vaping Use Never Used 03/07/25 13:32 PHQ-9: PHQ-9 Score PHQ-9: Total score 3 03/07/25 13:32 Depression Screening Interpretation: Positive Depression Screening Follow-up: Existing condition Thrive Assessment: Date of Thrive Assessment Date Thrive assessed 09/04/24 03/07/25 13:32 Currently or been in a relationship where the following occur: No concerns reported Const General: cooperative, comfortable, no acute distress, alert and awake; No confusion Orientation/consciousness: oriented to person, oriented to place, patient oriented x3 and No confusion HENMT Head: Yes normocephalic Ears: external ears normal and TM's normal bilaterally Face and sinus: No sinus tenderness Mouth: Normal oral and palatal mucosa present and tongue normal Teeth and gingiva: dentition normal and gingiva normal Throat: Yes posterior oropharynx normal, Yes tonsils normal and Yes uvula midline Eyes Conjunctivae: conjunctivae normal Sclerae: sclerae normal Pupils: Equal, round and reactive pupils present EOM: EOMs intact bilaterally Direct Ophthalmoscopy: No no photophobia Neck Neck: Yes no lymphadenopathy, No tender and Yes no JVD Thyroid: Thyroid normal Carotids: no bruits Chest Chest palpation & inspection: no tenderness Resp Effort & Inspection: normal respiratory effort, no audible wheezes, not labored and no stridor Auscultation: no crackles, no rales, no rhonchi and no wheezes Cardio Jugular venous distension: no JVD Rate: regular rate, not bradycardic and not tachycardic Rhythm: regular rhythm Bruits: no carotid bruits Peripheral pulses: Peripheral pulses 2+ throughout GI Inspection: Yes normal to inspection, No abdominal wall ecchymosis and No visible herniation Palpation (GI): Soft to palpation, nontender, no guarding, not rigid and No hepatosplenomegaly present Auscultation: normoactive bowel sounds General: Yes no CVA tenderness Back/Spine/Pelvis Back: no CVA tenderness and No back tenderness Cervical Spine: cervical ROM normal Thoracic/Lumbar Spine: thoracic and lumbar spine normal to inspection, straight leg raise negative bilaterally, No thoraco-lumbar ROM limited and No lumbar spinal tenderness Skin Lesions: no lesions Rashes: no rashes Wounds: no wounds Neuro General: oriented to person, oriented to place, patient oriented x3, CN's II-XI intact bilaterally and No confusion Cranial nerves: Yes Equal, round and reactive pupils present and Yes Normal accommodation reflex present Cognition (Neuro): normal cognition Speech: No Abnormal speech present Gait exam (Neuro): Normal gait present Motor exam (neuro): 5/5 motor strength present throughout Extrem Right upper extremity: full ROM; no cyanosis Left upper extremity: full ROM; no cyanosis Right lower extremity: no edema Left lower extremity: no edema Psych Appearance: grossly normal Mental Status: mental status grossly normal Affect: normal affect Attitude: cooperative Thought process: Normal thought process present Coding Level of Care Code Est Pt Prev Care >65y(28219) Diagnoses Annual physical exam Z00.00 Essential hypertension I10 Hypertension type: essential hypertension Coronary artery disease involving [place] coronary artery of [place] heart with unstable angina pectoris I25.110 Coronary Disease-Associated Artery/Lesion type: [place] artery [place] vs. transplanted heart: [place] heart Associated angina: with unstable angina Acute recurrent frontal sinusitis J01.11 Sinusitis location: frontal Chronicity: acute Recurrence: recurrent ONEYDA (generalized anxiety disorder) F41.1 Additional Codes PHQ-9 - 81247 - PHQ-9 Billing: Yes ([id number]) Assessment & Plan Assessment & Plan (1) Annual physical exam: Code(s): Z00.00 - Encounter for general adult medical examination without abnormal findings Category: Medical Plan: As per HPI (2) HTN (hypertension): Code(s): I10 - Essential (primary) hypertension Category: Medical Qualifiers: Hypertension type: essential hypertension Qualified Code(s): I10 - Essential (primary) hypertension Plan: Patient's blood pressure acceptable today in office. He reports often getting bilateral foot edema likely secondary to his amlodipine. Will hold his amlodipine and start hydrochlorothiazide 12.5 for blood pressure control along with his current medication. goal blood pressure to be below 140/90 (3) CAD (coronary artery disease): Code(s): I25.10 - Atherosclerotic heart disease of [place] coronary artery without angina pectoris Category: Medical Qualifiers: Coronary Disease-Associated Artery/Lesion type: [place] artery [place] vs. transplanted heart: [place] heart Associated angina: with unstable angina Qualified Code(s): I25.110 - Atherosclerotic heart disease of [place] coronary artery with unstable angina pectoris Plan: Patient now followed by [facility]. He has recently started additional cholesterol medications Zetia. His continued high-dose statin therapy, amlodipine and dual antiplatelet therapy. Most recent LDL at 80 (4) Sinusitis: Code(s): J32.9 - Chronic sinusitis, unspecified Category: Medical Qualifiers: Sinusitis location: frontal Chronicity: acute Recurrence: recurrent Qualified Code(s): J01.11 - Acute recurrent frontal sinusitis Plan: As per HPI patient does suffer from allergies which in turn causes him to have acute sinusitis. Will supply patient with the azithromycin due to his acute sinusitis. (5) ONEYDA (generalized anxiety disorder): Code(s): F41.1 - Generalized anxiety disorder Category: Medical Plan: Patient continues on SSRI therapy with decent affect on his anxiety. Medications: New azithromycin For 250 mg dose pack: take 500 mg today (day 1), then 250 mg for 4 days (days 2-5) PO 6 tabs 0RF J32.9 - Chronic sinusitis, unspecified hydrochlorothiazide 12.5 mg PO DAILY 90 tabs 1RF 90 days I10 - Essential (primary) hypertension Refilled albuterol sulfate 90 mcg/actuation 2 puffs PO Q4H PRN 8.5 grams 3RF shortness of breath or wheezing J30.1 - Allergic rhinitis due to pollen Discontinued hydroxyzine HCl Take 1-2 tablets before bed Discontinued Reason: Doctor's Order 20 mg (2 x 10 mg) PO BEDTIME 15 days 30 tabs 3RF F41.1 - Generalized anxiety disorder, F41.9 - Anxiety disorder, unspecified
--- OUTSIDE RECORDS SUMMARY | 2025-03-07 17:00 | XMS_ITS | Patient Health Record ---
Author Organization [facility] Address [address] [place] [address] Care Team Providers Care Senior Caregiver Name Role Phone Barbara(inactive) Noman JUAN Primary Care Provider Anselmo Terry Jr Reason For Referral No Information Plan Of Treatment No Information Insurance Providers Payer Name Payer Address Payer Phone Subscriber Number Group Number Insured Name Patient Relationship to Insured Coverage Start Date Coverage End Date MEDICAID OF [facility] [address] [place] [phone] [id number] SHAWANDA SHEPHERD Self - patient is the insured
== END 2025-03-07 13:56 | disposition home or self-care (01) ==
LOC: HO.HMCH 13:23
PROVIDERS: PCP Physician Assistant; Visit Provider Physician Assistant
DX: Z00.00 Encounter for general adult medical examination without abnormal findings (principal); I10 Essential (primary) hypertension; I25.110 Atherosclerotic heart disease of native coronary artery with unstable angina pectoris; J01.11 Acute recurrent frontal sinusitis; F41.1 Generalized anxiety disorder

== ENCOUNTER → 2025-03-07 13:22 | Outpatient (BNVA) | payer OTHER, SELFPAY | PROVIDERS: PCP Physician Assistant; Visit Provider Physician Assistant | DX: Z00.00 Encounter for general adult medical examination without abnormal findings (principal); I25.10 Atherosclerotic heart disease of native coronary artery without angina pectoris; M54.2 Cervicalgia; I10 Essential (primary) hypertension; J01.11 Acute recurrent frontal sinusitis; F41.1 Generalized anxiety disorder; J30.1 Allergic rhinitis due to pollen | CPT/HCPCS: 96127 ==

== ENCOUNTER 2025-03-08 08:30 | Outpatient (REF) | payer OTHER, SELFPAY ==
--- OUTSIDE RECORDS SUMMARY | 2025-03-08 09:14 | XMS_ITS | Encounter Summary ---
Author Organization [facility] Address [address] [place] [address] Phone Care Team Providers Care Pipe Fitter Supervisor Name Role Phone Noman Jimenez DO Primary Care Provider [phone]- [phone] Diogenes Murdock Primary Care Provider + Karla Dietrich DO Primary Care Provider +[phone]- [phone] Basim Orosco MD Primary Care Provider +1- [phone] Ehsan Green MD Unavailable [phone] Noman Jimenez DO Primary Care Provider [phone]- [phone] Diogenes Murdock Primary Care Provider + Encounter Details Date Type Department Care Team (Late st Contact Info) Description 12/06/2017 Ancillary Orders Virtual Department [address] [place] [address] Noman Jimenez DO [address] [place] [address] Failed back syndrome Social History Tobacco Use Types Packs/Day Years Used Date Smoking Tobacco: Former Smokeless Tobacco: Never Comments:quit 10 years ago Alcohol Use Standard Drinks/Week Comments No 0 (1 standard drink = 0.6 oz pur e alcohol) Sex and Gender Information Value Date Recorded Sex Assigned at Male 11/03/2017 11:27 AM EDT Legal Sex Male 9:55 PM EDT Gender Identity Male 11/03/2017 11:27 AM EDT Sexual Orientation Lesbian or Miner 11/03/2017 11 :27 AM EDT documented as of this encounter Plan of Treatment Not on file documented as of this encounter Visit Diagnoses Diagnosis Failed back syndrome Other unspecified back disorder documented in this encounter Additional Health Concerns Infection Onset Date Last Indicated Resolved Time CoV-Risk 05/21/2021 05/21/2021 05/31/2021 1:23 AM EST COVID-19 04/17/2023 04/17/2023 05/08/2023 1:22 AM EST CoV-Risk 08/01/2024 08/01/2024 08/12/2024 1:21 AM EDT documented as of this encounter Care Teams Pipe Fitter Supervisor Relationship Specialty Start Date End Date Noman Jimenez DO [address] [place] [address] PCP - General Internal Medicine 03/24/17 04/03/18 Diogenes Murdock PA [address] [place] [address] PCP - General 04/04/18 06/21/18 Karla Dietrich DO [address] [place] [address] [email or web address] PCP - General Family Medicine 06/22/18 07/05/18 Basim Orosco MD [address] [place] [address], [address] [place] [address] [email or web address] PCP - General Internal Medicine 07/06/18 02/14/19 Noman Jimenez DO [address] [place] [address] PCP - General Internal Medicine 02/15/19 04/16/23 Diogenes Murdock PA [address] [place] [address] PCP - General Physician Union Carpenter 04/17/23 Ehsan Green MD [address] [place] [address], [address] [place] [address] [email or web address] Urology 08/03/18 documented as of this encounter Additional Source Comments The information contained in this document represents components of the legal health record. It is not the complete legal health record.[facility]
--- OUTSIDE RECORDS SUMMARY | 2025-03-08 09:14 | XMS_ITS | Encounter Summary ---
Author Organization [facility] Address [address] [facility] [address] [place] [address] Phone Care Team Providers Care Head Sulfide Operator Name Role Phone Noman Jimenez DO Primary Care Provider [phone]- [phone] Diogenes Murdock Primary Care Provider + Karla Dietrich DO Primary Care Provider +1- [phone] Basim Orosco MD Primary Care Provider +[phone]- [phone] Ehsan Green MD Unavailable [phone] Noman Jimenez DO Primary Care Provider [phone]- [phone] Diogenes Murdock Primary Care Provider + Encounter Details Date Type Department Care Team (Late st Contact Info) Description 07/25/2017 Procedure Pass [facility], Ct Scan - [address] [address] Social History Tobacco Use Types Packs/Day Years [...] documented as of this encounter Visit Diagnoses Not on filedocumented in this encounter Additional Health Concerns Infection Onset Date Last Indicated Resolved Time CoV-Risk 05/21/2021 05/21/2021 05/31/2021 1:23 AM EST COVID-19 04/17/2023 04/17/2023 05/08/2023 1:22 AM EST CoV-Risk 08/01/2024 08/01/2024 08/12/2024 1:21 AM EDT documented as of this encounter Care Teams Head Sulfide Operator Relationship Specialty Start Date End Date Noman Jimenez DO [address] [place] [address] PCP - General Internal Medicine 03/24/17 04/03/18 Diogenes Murdock PA [address] [place] [address] PCP - General 04/04/18 06/21/18 Karla Dietrich DO [address] [place] [address] [email or web address] PCP - General Family Medicine 06/22/18 07/05/18 Basim Orosco MD [address] [place] [address], [address] [place] [address] [email or web address] PCP - General Internal Medicine 07/06/18 02/14/19 Noman Jimenez DO [address] [place] [address] PCP - General Internal Medicine 02/15/19 04/16/23 Diogenes Murdock PA [address] [place] [address] PCP - General Physician Meteorology Professor 04/17/23 Ehsan Green MD [address] [place] [address], [address] [address] [email or web address] Urology 08/03/18 documented as of this encounter Additional Source Comments The information contained in this document represents components of the legal health record. It is not the complete legal health record.[facility]
--- OUTSIDE RECORDS SUMMARY | 2025-03-08 09:15 | XMS_ITS | Encounter Summary ---
Author Organization [facility] Address [address] [place] [address] Phone Care Team Providers Care Screwhead Polisher Name Role Phone Diogenes Murdock Primary Care Provider + Karla Dietrich DO Primary Care Provider [phone]- [phone] Basim Orosco MD Primary Care Provider [phone]- [phone] Ehsna Green MD Unavailable [phone] Noman Jimenez DO Primary Care Provider [phone]- [phone] Diogenes Murdock Primary Care Provider + Encounter Details Date Type Department Care Team (Late st Contact Info) Description 05/06/2018 Ancillary Orders [facility], X-Ray - [facility] [address] [place] [address] Diogenes Murdock PA [address] [place], [place] [id number] Pain of lumbar spine; Right hip pain Social History Tobacco Use Types Packs/Day Years [...] on file documented as of this encounter Results * XR LUMBOSACRAL SPINE 4 OR MORE VIEWS (05/06/2018 4:54 PM EST) Anatomical Region Laterality Modality L-spine Radiographic Kimberlee ging 05/06/2018 5:07 PM EST Impressions 05/06/2018 5:09 PM EST No significant interval change from 12/16/2015. POS - [id number] Narrative 05/06/2018 5:09 PM EST COMPARISON: 12/16/2015 FINDINGS: Frontal and, lateral, and oblique views were obtained. No vertebral body fracture or subluxation apparent. Prominent ventral osteophyte formation is again seen at the L1-2 and L3-4 levels with grossly stable spondylosis present at the additional levels. Disc spaces appear to be stable in height. There is stable lower lumbar degenerative facet arthropathy without evidence of spondylolysis. Procedure Note Jaison Jordan MD - 05/06/2018 COMPARISON: 12/16/2015 FINDINGS: Frontal and, lateral, and oblique views were obtained. No vertebral bodyfracture or subluxation apparent. Prominent ventral osteophyte formationis again seen at the L1-2 and L3-4 levels with grossly stable spondylosispresent at the additional levels. Disc spaces appear to be stable inheight. There is stable lower lumbar degenerative facet arthropathywithout evidence of spondylolysis. IMPRESSION: No significant interval change from 12/16/2015. POS - [id number] Diogenes ARELLANO IMG XR SPINE Final Re sult * XR Sacrum and Coccyx (05/06/2018 4:53 PM EST) Anatomical Region Laterality Modality L-spine Radiographic Kimberlee ging 05/06/2018 5:09 PM EST Impressions 05/06/2018 5:10 PM EST Distal coccyx not visualized on the lateral projection. Sacral ala appear to be grossly intact. POS - [id number] Narrative 05/06/2018 5:10 PM EST COMPARISON: None FINDINGS: Frontal and lateral views were obtained revealing no sacral fracture. Distal coccyx is not well-visualized on the lateral projection and could possibly be congenitally absent. Sacral iliac joints are symmetric in width. Procedure Note Jaison Jordan MD - 05/06/2018 COMPARISON: None FINDINGS: Frontal and lateral views were obtained revealing no sacral fracture.Distal coccyx is not well-visualized on the lateral projection and couldpossibly be congenitally absent. Sacral iliac joints are symmetric inwidth. IMPRESSION: Distal coccyx not visualized on the lateral projection. Sacral ala appearto be grossly intact. POS - [email or web address] us Diogenes ARELLANO IMG XR SPINE Final Re sult * XR HIP 2 VW RIGHT PLUS PELVIS (05/06/2018 4:52 PM EST) Anatomical Region Laterality Modality Hip Right Radiographic Kimberlee ging 05/06/2018 5:10 PM EST Impressions 05/06/2018 5:12 PM EST Intact hip prosthesis without acute bony abnormality apparent. If prior outside radiographic studies could be obtained and submitted a comparison report will be rendered. POS - [id number] Narrative 05/06/2018 5:12 PM EST COMPARISON: None FINDINGS: An AP view of the pelvis and AP neutral and frog-lateral views of the right hip disclose intact bilateral hip prostheses. No evidence of gross loosening on the right. No pelvic fracture apparent. There appears to be bilateral heterotopic bone formation. No aberrant soft tissue calcifications of significance identified. Procedure Note Jaison Jordan MD - 05/06/2018 COMPARISON: None FINDINGS: An AP view of the pelvis and AP neutral and frog-lateral views of theright hip disclose intact bilateral hip prostheses. No evidence of grossloosening on the right. No pelvic fracture apparent. There appears to bebilateral heterotopic bone formation. No aberrant soft tissuecalcifications of significance identified. IMPRESSION: Intact hip prosthesis without acute bony abnormality apparent. If prioroutside radiographic studies could be obtained and submitted a comparisonreport will be rendered. POS - [email or web address] Diogenes ARELLANO IMG XR PELVIS Final Re sult documented in this encounter Visit Diagnoses Diagnosis Pain of lumbar spine Right hip pain Pain in joint, pelvic region and thigh Pain of lumbar spine Right hip pain Pain in joint, pelvic region and thigh Pain of lumbar spine Right hip pain Pain in joint, pelvic region and thigh Pain of lumbar spine Right hip pain Pain in joint, pelvic region and thigh documented in this encounter Additional Health Concerns Infection Onset Date Last Indicated Resolved Time CoV-Risk 05/21/2021 05/21/2021 05/31/2021 1:23 AM EST COVID-19 04/17/2023 04/17/2023 05/08/2023 1:22 AM EST CoV-Risk 08/01/2024 08/01/2024 08/12/2024 1:21 AM EDT documented as of this encounter Care Teams Screwhead Polisher Relationship Specialty Start Date End Date Diogenes Murdock PA [address] [place] [address] PCP - General 04/04/18 06/21/18 Karla Dietrich DO [address] [place] [address] [email or web address] PCP - General Family Medicine 06/22/18 07/05/18 Basim Orosco MD [address] [place] [address], [address] [place] [address] PCP - General Internal Medicine 07/06/18 02/14/19 Noman Jimenez DO [address] [place] [address] PCP - General Internal Medicine 02/15/19 04/16/23 Diogenes Murdock PA [address] [place] [address] PCP - General Physician Lift Slab Operator 04/17/23 Ehsan Green MD [address] [place] [address], [address] [place] [address] [email or web address] Urology 08/03/18 documented as of this encounter Additional Source Comments The information contained in this document represents components of the legal health record. It is not the complete legal health record.[facility]
--- OUTSIDE RECORDS SUMMARY | 2025-03-08 09:15 | XMS_ITS | Encounter Summary ---
Author Organization [facility] Address [address] [place] [address] Phone Care Team Providers Care Funeral Planner Name Role Phone Ehsan Green MD Unavailable [phone] Noman Jimenez DO Primary Care Provider [phone] Diogenes Murdock Primary Care Provider + Encounter Details Date Type Department Care Team (Late st Contact Info) Description 07/13/2019 Ancillary Orders Virtual Department [address] [place] [address] Hema Parish MD [address] [place] [address] Deep vein thrombosis (DVT) of distal vein of lower extremity, unspecified chronicity, unspecified laterality Social History Tobacco Use Types Packs/Day Years [...] or Miner 11/03/2017 11 :27 AM EDT 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 file Not on file Not on file documented as of this encounter Plan of Treatment Not on file documented as of this encounter Visit Diagnoses Diagnosis Deep vein thrombosis (DVT) of distal vein of lower extremity, unspecified chronicity, unspecified laterality documented in this encounter Additional Health Concerns Infection Onset Date Last Indicated Resolved Time CoV-Risk 05/21/2021 05/21/2021 05/31/2021 1:23 AM EST COVID-19 04/17/2023 04/17/2023 05/08/2023 1:22 AM EST CoV-Risk 08/01/2024 08/01/2024 08/12/2024 1:21 AM EDT documented as of this encounter Care Teams Funeral Planner Relationship Specialty Start Date End Date Noman Jimenez DO [address] [place] [address] PCP - General Internal Medicine 02/15/19 04/16/23 Diogenes Murdock PA [address] [place] [address] PCP - General Physician Marketing Database Consultant 04/17/23 Ehsan Green MD [address] [place] [address], [address] [address] [email or web address] Urology 08/03/18 documented as of this encounter Additional Source Comments The information contained in this document represents components of the legal health record. It is not the complete legal health record.[facility]
--- OUTSIDE RECORDS SUMMARY | 2025-03-08 09:15 | XMS_ITS | Encounter Summary ---
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 Wish to be (Past 1 Month) No 022 9:27 AM Nalini Luna, MYA 2. Non-Specific Active Suici garrison Thoughts (Past 1 Month) No 05/21/2021 9:27 AM Ángel Luna RN 6. Suicidal Behavior (Lifetime) No 9:27 AM Nalini Luna RN documented as of this encounter Plan of Treatment Not on file documented as of this encounter Visit Diagnoses Not on filedocumented in this encounter Additional Health Concerns Infection Onset Date Last Indicated Resolved Time CoV-Risk 05/21/2021 05/21/2021 05/31/2021 1:23 AM EST COVID-19 04/17/2023 04/17/2023 05/08/2023 1:22 AM EST CoV-Risk 08/01/2024 08/01/2024 08/12/2024 1:21 AM EDT documented as of this encounter Care Teams Head Teller Relationship Specialty Start Date End Date Noman Jimenez DO [address] [place] [address] PCP - General Internal Medicine 02/15/19 04/16/23 Diogenes Murdock PA [address] [place] [address] PCP - General Physician Check Writer 04/17/23 Ehsan Green MD [address] [place] [address], [address] [address] [email or web address] Urology 08/03/18 documented as of this encounter Additional Source Comments The information contained in this document represents components of the legal health record. It is not the complete legal health record.[facility]
--- OUTSIDE RECORDS SUMMARY | 2025-03-08 09:15 | XMS_ITS | Patient Health Record ---
Author Organization [facility] Address [address] [place] [address] Care Team Providers Care Maintenance Trainer Name Role Phone Barbara(inactive) Noman JUAN Primary Care Provider Anselmo Terry Jr Reason For Referral No Information Plan Of Treatment No Information Insurance Providers Payer Name Payer Address Payer Phone Subscriber Number Group Number Insured Name Patient Relationship to Insured Coverage Start Date Coverage End Date MEDICAID OF [facility] [address] [place] [phone] [id number] SHAWANDA SHEPHERD Self - patient is the insured
--- OUTSIDE RECORDS SUMMARY | 2025-03-08 09:15 | XMS_ITS | Encounter Summary ---
Author Organization [facility] Address [address] [facility] [address] [place] [address] Phone Care Team Providers Care Sinter Feeder Name Role Phone Noman Jimenez DO Primary Care Provider +[phone]- [phone] Diogenes Murdock Primary Care Provider + Karla Dietrich DO Primary Care Provider +[phone]- [phone] Basim Orosco MD Primary Care Provider +[phone]- [phone] Ehsan Green MD Unavailable [phone] Noman Jimenez DO Primary Care Provider [phone]- [phone] Diogenes Murdock Primary Care Provider + Encounter Details Date Type Department Care Team (Late st Contact Info) Description 03/24/2017 Procedure Pass [place] Admitting Dept - Virtual Department [address] [place] [address] Social History Tobacco Use Types Packs/Day Years [...] documented as of this encounter Care Teams Sinter Feeder Relationship Specialty Start Date End Date Noman Jimenez DO [address] [place] [address] PCP - General Internal Medicine 03/24/17 04/03/18 Diogenes Murdock PA [address] [place] [address] PCP - General 04/04/18 06/21/18 Karla Dietrich DO [address] [place] [address] [email or web address] PCP - General Family Medicine 06/22/18 07/05/18 Basim Orosco MD [address] [place] [address], [address] [place] [address] [email or web address] PCP - General Internal Medicine 07/06/18 02/14/19 Noman Jimenez DO [address] [place] [address] PCP - General Internal Medicine 02/15/19 04/16/23 Diogenes Murdock PA [address] [place] [address] PCP - General Physician Interventional Pain Physician 04/17/23 Ehsan Green MD [address] [place] [address], [address] [address] [email or web address] Urology 08/03/18 documented as of this encounter Additional Source Comments The information contained in this document represents components of the legal health record. It is not the complete legal health record.[facility]
--- OUTSIDE RECORDS SUMMARY | 2025-03-08 09:15 | XMS_ITS | Clinical Summary ---
Author Organization [facility] Address [address] [facility] [address] [place] [address] Phone Care Team Providers Care Data Entry Associate Name Role Phone Ehsan Green MD Unavailable [phone] Diogenes Murdock Primary Care Provider + Allergies Active Allergy Reactions Criticality Noted Date Comments Other 04/17/2023 Medications aspirin 81 MG EC tablet Take 162 mg by mouth daily. Active amoxicillin (AMOXIL) 500 MG capsule Take 2,000 mg by mouth as needed (for dental). 1 04/07/2018 Active lisinopril (PRINIVIL,ZESTR IL) 30 MG tablet Take 30 mg by mouth daily. Active gabapentin (NEURONTIN) 300 MG capsule Take 300 mg by mouth nightly at bedtime. Active FLUoxetine (PROZAC) 20 MG capsule Take 40 mg by mouth daily. Active clopidogrel (PLAVIX) 75 mg tablet Take 1 tablet by mouth every morning. 07/17/2023 Active ipratropium (ATROVENT) 42 mcg (0.06 %) nasal spray USE 2 SPRAYS IN THE NOSE TWICE A DAY 07/09/2023 Active nitroglycerin (NITROSTAT) 0.[address] 1 tablet (0.4 mg total) under the tongue every 5 (five) minutes as needed for chest pain. 25 tablet 5 07/20/2023 Active atorvastatin (LIPITOR) 80 MG tablet TAKE 1 TABLET BY MOUTH EVERY DAY 90 tablet 5 08/30/2024 Active amLODIPine (NORVASC) 5 MG tablet TAKE 1 TABLET (5 MG TOTAL) BY MOUTH DAILY. 90 tablet 5 08/30/2024 Active Active Problems Problem Noted Date Diagnosed Date Coronary artery disease invo lving [place] coronary artery of [place] heart without angina pectoris 09/27/2023 Assessment & Plan (09/27/2023 10:29 AM EDT): No further angina since starting amlodipine 5 mg daily. His headaches have resolved with discontinuation of isosorbide. Doing very well with cardiac rehab and is not having any exertional symptoms. We reviewed his cardiac catheterization and recommendations for medical management given location of his ostial circumflex disease. Continue aspirin, Plavix, amlodipine, and atorvastatin. Ideally will stay on DAPT for at least 1 year. If he develops angina in the future, can consider nuclear stress test to evaluate stability of his nonobstructive disease. Ingrown right greater toenail 12/02/2018 Assessment & Plan (12/02/2018 3:32 PM EDT): Patient has pain due to his toenail corners causing trauma to the skin after cutting his nails too short. I showed him how he can gently try and push the skin away from the toenail at his lateral aspects. I asked him to let his toenails grow out so he can see the corners of the toenails. He can use moleskin or a bandage to try to contact the other toes if there is a problem with friction. If this does not help or he develops redness or swelling he will let me know I will refer him to podiatry. Allergic rhinitis 06/22/2018 Essential hypertension 06/22/2018 Assessment & Plan (09/27/2023 10:28 AM EDT): BP well-controlled on current regimen. Assessment & Plan (11/03/2018 11:30 AM EDT): Blood pressure is running above the target. I would like him to increase lisinopril to 10 mg daily. Continue monitoring blood pressure at home and bring his blood pressure cuff to his next appointment 4. Goal is to keep his blood pressure on average less than 140/90. Assessment & Plan (08/03/2018 3:17 PM EDT): Mildly elevated but at goal on medication. Check labs. Continue current medication History of DVT of lower extremity 06/22/2018 Overview (06/22/2018): Right leg - was treated with coumadin Hyperlipidemia 06/22/2018 Assessment & Plan (09/27/2023 10:28 AM EDT): Last lipid panel at [facility] as above, taken prior to increasing his atorvastatin. Goal LDL is less than 70 mg/dL. Will repeat lipid panel before his next visit. Continue high intensity statin. Assessment & Plan (08/03/2018 3:17 PM EDT): LDL goal is less than 130. If not at goal I will have him work on diet and exercise for a few more months. Gastroesophageal reflux disease without esophagi tis 06/22/2018 Overview (06/22/2018): Taking omeprazole 20 mg daily. Assessment & Plan (08/03/2018 3:20 PM EDT): Well-controlled, continue current medication and diet. Insomnia 06/22/2018 Overview (06/22/2018): Insomnia in past taking 10 mg melatonin nightly which helps control insomnia. Chronic back pain Assessment & Plan (11/03/2018 12:57 PM EDT): His pain is about the same. He is no longer taking oxycodone because no one has prescribed it for him. He would like to continue with this but I am still not clear what his diagnosis is. He reports he got no better with meloxicam but he mistakenly called the Celebrex, not 100% sure that he actually tried this medication. He is to have a steroid injection next month at the [facility] pain clinic. I asked him to make sure they send a note to me. We will reassess and address this when he comes in for his next appointment. Assessment & Plan (08/03/2018 3:19 PM EDT): Patient's pain waxes and wane. He is doing well with his regimen of walking and pool therapy. Is not clear to me that he needs any narcotic. He may well tolerate a Alonzo 2 inhibitor and I think that will be helpful if acetaminophen is not controlling his pain. I want him to continue using acetaminophen for milder pain and use meloxicam if the pain is more severe. I will review his old records. If his pain is not well controlled and his old records are consistent with appropriate use, I may consider prescribing a small amount of oxycodone for the patient to use for when his pain is most severe. History of tobacco use Immunizations Immunization Administration Dates Next Due Influenza Quadrivalent Preservative Free IM 01/08 Family History Medical History Relation Comments Alcohol use disorder Father Cirrhosis Father Tuberculosis Maternal Grandmother Coronary artery disease Mother Heart disease Mother Hyperlipidemia Mother Hypertension Mother No Known Problems Paternal Grandmother Relation Status Comments Father Maternal Grandfather Maternal Grandmother Mother (Age 81) Paternal Grandfather Paternal Grandmother (Age 101) Social History Tobacco Use Types Packs/Day Years Used Date Smoking Tobacco: Former Smokeless Tobacco: Never Tobacco Cessation:Counseling Given: Not Answered Comments:quit 10 years ago Alcohol Use Standard Drinks/Week Comments No 0 (1 standard drink = 0.6 oz pur e alcohol) Education Answer Date Recorded Are you interested in more education? Not on miah e 09/04/2022 Are you concerned about learning? Not on file 09/04/2022 No 09/04/2022 No 09/04/2022 Digital Access Answer Date Recorded No 10/03/2022 No 10/03/2022 Reliable internet access at home? Not on file 10/03/2022 Device with a working camera? Not on file Intimate Partner Violence Answer Date R ecorded Are you denied basic needs s uch as food, clothing, or medical care? No 08/01/2024 In the past 12 months have y ou been in a relationship with a person who hurts, threatens, or tries to control you? No 08/01/2024 Are you denied basic needs s uch as food, clothing, or medical care? No 08/01/2024 In the past 12 months have y ou been in a relationship with a person who hurts, threatens, or tries to control you? 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 Not on file Not on file Not on file Last Filed Vital Signs Vital Sign Reading Time Taken Comments Blood Pressure 127/75 08/01/2024 10:36 AM EDT Pulse 68 08/01/2024 10:36 AM EDT Temperature 36.3 C (97.3 F) 08/01/2024 10:36 AM EDT Respiratory Rate 24 08/01/2024 7:37 AM EDT Oxygen Saturation 99% 08/01/2024 10:36 AM EDT Inhaled Oxygen Concentration - - Weight 81.6 kg (180 lb) 08/01/2024 7:37 AM EDT Height 170.2 cm (5' 7 ) 08/01/2024 7:37 AM EDT Body Mass Index 28.19 08/01/2024 7:37 AM EDT Plan of Treatment Health Maintenance Due Date Last Done Comments SMOKING Hx and SMOKELESS TOBACCO SCREENING 01/11/1968 HEPATITIS C SCREENING 1973 HEPATITIS A VACCINES (1 of 2 - Risk 2-dose series) 1974 COLOGUARD 01/11/2000 COLONOSCOPY 01/11/2000 COLORECTAL CANCER SCREENING 01/11/2000 FIT TEST 01/11/2000 FOBT 01/11/2000 SIGMOIDOSCOPY 01/11/2000 VIRTUAL COLONOSCOPY 01/11/2000 ZOSTER VACCINES (1 of 2) 2005 PNEUMOCOCCAL VACCINES (50+ years) (2 of 2 - PCV) 03/28/2019 03/28/2018, 01/12/2014 ABDOMINAL AORTIC ANEURYSM (AAA) SCREENING 01/11/2020 BLOOD PRESSURE 03/29/2024 09/27/2023 DEPRESSION SCREENING 08/17/2024 08/18/2023 INFLUENZA VACCINE (#1) 2024 9, 01/17/2018, 12/23/2016, Additional history exists COVID-19 VACCINE ( season) 2025 08/30/2020, 08/02/2020 CREATININE LEVEL 08/01/2025 08/01/2024, 11/2023, 07/15/2022, Additional history exists POTASSIUM LEVEL 08/01/2025 08/01/2024, 11/2023, 07/15/2022, Additional history exists Adult Td,Tdap Booster 01/11/2029 01/11/2019 RSV VACCINE (1 - 1-dose 75+ series) 2030 HIB VACCINES Aged Out No longer eligi ble based on patient's age to complete this topic MENINGOCOCCAL VACCINES (ACWY) Aged Out No longer eligible based on patient's age to complete this topic MENINGOCOCCAL VACCINES (B) Aged Out N o longer eligible based on patient's age to complete this topic Medical Devices Not on file Procedures Procedure Name Priority Date/Time Associated Diagnosis Comments BASIC METABOLIC PANEL STAT 08/01/2024 8:03 AM EDT from Last 3 Months or Most Recently Relevant to Health Maintenance Results * (ABNORMAL) Basic metabolic panel (08/01/2024 8:03 AM EDT) SODIUM 138 133 - 146 mmol/L [facility] CHLORIDE 103 96 - 108 mmol/L [facility] POTASSIUM 4.4 3.3 - 5.1 mmol/L [facility] CO2 24 21 - 35 mmol/L [facility] BUN 19 6 - 19 mg/dL [facility] CREATININE 0.90 0.5 - 1.5 mg/dL [facility] GLUCOSE 121(H) 70 - 99 mg/dL [facility] CALCIUM 9.0 8.4 - 10.3 mg/dL [facility] EGFR 92 >59 mL/min/1.7 3m2 [facility] Comment:Estimated glomerular filtration rate calculated using the CKD-EPI refit equation. ANION GAP 15 10 - 20 mmol/L [facility] Blood 08/01/2024 8:03 AM EDT 08/01/2024 8:07 AM EDT us Ayo Duong MD LAB BLOOD ORDERABLES Final Resu lt [address] [address] from Last 3 Months or Most Recently Relevant to Health Maintenance Insurance [facility] MEDICARE REPLACEMENT Member Subscriber Plan / Payer (Ef fective 2022-Present) Name:Catalino Bowens Relation to Subscriber:Self Name:Catalino Bowens Payer ID:[id number] (NAIC) Group ID:Not on file Type:Medicare Address: [place] [id number] MEDICARE REPLACEMENT Member Subscriber Plan / Payer (Ef fective 2022-Present) Name:Catalino Bowens Relation to Subscriber:Self Name:Catalino Bowens Payer ID:[id number] (NAIC) Group ID:Not on file Type:Medicare Address: [place] [id number] [facility] MEDICARE REPLACEMENT MEDICARE REPLACEMENT [facility] MEDICARE REPLACEMENT [facility] MEDICARE REPLACEMENT Care Teams Data Entry Associate Relationship Specialty Start Date End Date Diogenes Murdock PA [address] [place] [id number] PCP - General Physician Irrigation Laborer 04/17/23 Ehsan Green MD [facility], [address] [address] [email or web address] Urology 08/03/18 Additional Source Comments The information contained in this document represents components of the legal health record. It is not the complete legal health record.[facility]
--- OUTSIDE RECORDS SUMMARY | 2025-03-08 09:15 | XMS_ITS | Encounter Summary ---
Author Organization [facility] Address [address] [place] [address] Phone Care Team Providers Care Music Leader Name Role Phone Ehsan Green MD Unavailable [phone] Noman Jimenez DO Primary Care Provider [phone] Diogenes Murdock Primary Care Provider + Encounter Details Date Type Department Care Team (Latest Contact Info) Description 02/15/2019 Transcribe Orders [facility] Laboratory [address] [place] [address] Ehsan Green MD [address] [place] [address], [address] [address] [email or web address] Special screening for malignant neoplasm of prostate (Primary Dx) Social History Tobacco Use Types Packs/Day Years [...] 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 on file Not on file Not on file documented as of this encounter Plan of Treatment Not on file documented as of this encounter Results * PSA (screening) (02/15/2019 11:40 AM EDT) PSA 1.39 0 - 4.00 ng/mL [facility] Blood 02/15/2019 11:4 0 AM EDT 02/15/2019 11:45 AM EDT us Ehsan Green MD LAB BLOOD ORDERABLES Final Resu lt [facility] [address] [place] [address] documented in this encounter Visit Diagnoses Diagnosis Special screening for malignant neoplasm of prostate- Primary documented in this encounter Additional Health Concerns Infection Onset Date Last Indicated Resolved Time CoV-Risk 05/21/2021 05/21/2021 05/31/2021 1:23 AM EST COVID-19 04/17/2023 04/17/2023 05/08/2023 1:22 AM EST CoV-Risk 08/01/2024 08/01/2024 08/12/2024 1:21 AM EDT documented as of this encounter Care Teams Music Leader Relationship Specialty Start Date End Date Noman Jimenez DO [address] [place] [address] PCP - General Internal Medicine 02/15/19 04/16/23 Diogenes Murdock PA [address] [place] [address] PCP - General Physician Engine Generator Assembler 04/17/23 Ehsan Green MD [address] [facility], [address] [address] Urology 08/03/18 documented as of this encounter Additional Source Comments The information contained in this document represents components of the legal health record. It is not the complete legal health record.[facility]
[2025-03-08 09:31] LABS: Hematocrit 45.7 % (42.0-52.0); Hemoglobin 15.4 g/dl (14.0-18.0); Mean Corpuscular HGB Conc 33.7 g/dl (31.0-36.0); Mean Corpuscular Hemoglobin 30.3 pg (27.0-33.0); Mean Corpuscular Volume 90.0 fL (80.0-98.0); NRBC Abs Auto 0.000 X10*3/uL (0.0-0.012); NRBC Pct Auto 0.0 /100WBC (0.0-0.2); Platelet Count 195 X10*3/uL (160-400); Red Blood Count 5.08 X10*6/uL (4.60-5.80); White Blood Count 7.8 X10*3/uL (4.8-10.8)
[2025-03-08 10:09] LABS: Alanine Aminotransferase 39 U/L (0-40); Albumin Level 4.8 g/dL (3.5-5.0); Alkaline Phosphatase 125 U/L (39-117); Anion Gap 11 (12-20); Aspartate Amino Transferase 28 U/L (5-37); Blood Urea Nitrogen 32 mg/dL (9-16); Calcium 9.6 mg/dL (8.4-10.2); Carbon Dioxide 28 mmol/L (22-29); Chloride 107 mmol/L (96-108); Cholesterol 107 mg/dL (<200); Estimated Glomerular Filt Rate > 60; HDL Cholesterol 44 mg/dL (>40); Potassium 4.1 mmol/L (3.3-5.1); Sodium 142 mmol/L (135-145); Total Protein 7.3 g/dL (6.5-8.0); Triglycerides 69 mg/dL (<150)
[2025-03-08 11:29] LABS: Appearance Urine Clear; Glucose Urine UA Negative (Negative); PH 5.5 (5.0-9.0); Specific Gravity - Urine 1.020 (1.005-1.025)
== END 2025-03-08 08:31 | disposition home or self-care (01) ==
LOC: HO.LAB 08:30
PROVIDERS: PCP Physician Assistant; Visit Provider Physician Assistant
DX: I10 Essential (primary) hypertension (principal); I25.110 Atherosclerotic heart disease of native coronary artery with unstable angina pectoris; N40.1 Benign prostatic hyperplasia with lower urinary tract symptoms; R30.0 Dysuria; L75.0 Bromhidrosis; Z12.5 Encounter for screening for malignant neoplasm of prostate
CPT/HCPCS: 36415; 80053; 80061; 81003; 82043; 82570; 84153; 85027

== ENCOUNTER 2025-03-08 08:54 | Outpatient (AMB) | payer OTHER, SELFPAY ==
[2025-03-08 09:00] VITALS: BP 122/72; PULSE 60; BMI 28.3
--- NOTE | 2025-03-08 09:00 | A.OFFVIS_ITS ---
Vital Signs 03/08/25 09:00 Height 5 ft 9 in Weight 191 lb 12.835 oz BMI 28.3 BP 122/72 Blood Pressure Location Lt brachial Position Sitting Pulse 60 Intake Visit Reasons: 6 mth f/up Intake Note: 6 month follow-up Evp Chief Exploration Officer Required: No Allergies isosorbide (From Imdur) Adverse Reaction (Intermediate, Verified 03/07/25 13:35) Migraine metoprolol Adverse Reaction (Intermediate, Verified 03/07/25 13:35) Bradycardia Seasonal Allergies Allergy (Unknown, Uncoded 03/07/25 13:35) unknown Medication List - Last Reconciled 03/08/25 by Carroll Foss MD albuterol sulfate 90 mcg/actuation 2 puffs PO Q4H PRN amlodipine 5 mg PO DAILY aspirin (Ecotrin Low Strength) 81 mg PO DAILY atorvastatin 80 mg PO DAILY azithromycin For 250 mg dose pack: take 500 mg today (day 1), then 250 mg for 4 days (days 2-5) PO cholecalciferol (vitamin D3) 25 mcg PO DAILY coenzyme Q10 (Ultra CoQ10) 75 mg PO DAILY cyanocobalamin (vitamin B-12) 1,000 mcg PO DAILY ezetimibe 10 mg PO DAILY fluoxetine 40 mg PO DAILY hydrochlorothiazide 12.5 mg PO DAILY 90 days ipratropium bromide 2 sprays intranasal BID 4 weeks lidocaine 5% 1 patch topical DAILY 30 days lisinopril 40 mg PO DAILY 90 days nitroglycerin 0.4 mg sublingual DIRECTED ranolazine ER 500 mg PO BID PRN triamcinolone acetonide 0.1% 1 appl topical DAILY 30 days vitamins A,C,Q-mbjq-lvwwhz 4,296 mcg-226 mg-90 mg (PreserVision AREDS) 1 cap PO BID HPI Comments Details: Catalino comes for follow-up. He has no new current anginal symptoms with walking. He said he remains active and denies any of the chest tightness pressure feeling that he was getting before. He is currently not taking his Ranexa. He says he has taken sublingual nitroglycerin twice. Takes all his medications. [facility] Medical History Cervical spondylitis Dental root implant present Lumbar radiculopathy Surgical History History of surgery Hx of laminectomy Family History Father COPD (chronic obstructive pulmonary disease) Cirrhosis Mother CAD (coronary artery disease) CHF (congestive heart failure) Brother CAD (coronary artery disease) Social History Housing: House Alcohol intake: never Patient Tobacco Use Status: Former Tobacco user Tobacco use type: Cigarette e-Cigarette/Vaping Use: Never Used Second Hand Smoke Exposure: Yes service: No Current occupational status: retired Cognitive needs: No Hearing needs: No Vision needs: No Review of Systems Const Denies chills, Denies fatigue, Denies fever(s), Denies frequent falls, Denies weakness, Denies weight gain and Denies weight loss ENT Denies dizziness Card Denies chest pain, Denies leg edema, Denies lightheadedness, Denies palpitations, Denies dyspnea, Denies dyspnea on exertion, Denies orthopnea and Denies other (loss of consciousness) Resp Denies cough, Denies dyspnea and Denies dyspnea on exertion GI Denies hematochezia and Denies change in stool character Musc Denies abnormal gait, Denies muscle weakness, Denies numbness, Denies radiating pain into limb and Denies tingling Neuro Denies Abnormal speech present, Denies abnormal gait, Denies dizziness, Denies frequent falls, Denies numbness, Denies tingling and Denies weakness Endo Denies fatigue and Denies palpitations Physical Exam Vital Signs: Last Vital Signs Pulse 60 03/08/25 09:00 BP 122/72 03/08/25 09:00 BMI result Body Mass Index 28.3 Const General: cooperative, comfortable, no acute distress, alert, awake and anxious Nutritional Appearance: well nourished and overweight Orientation/consciousness: patient oriented x3 Limitations: no limitations HEENT Head: Yes normocephalic and Yes atraumatic Neck Neck: Yes trachea midline, Yes supple and Yes no JVD Carotids: no bruits Resp Effort & Inspection: normal respiratory effort Auscultation: clear to auscultation bilaterally Cardio Jugular venous distension: no JVD Palpation: normal PMI Rate: regular rate Rhythm: regular rhythm Heart sounds: S1 normal heart sound present, S2 normal heart sound present, no click, no gallops, no murmurs and no rubs GI Auscultation: normal bowel sounds Skin General skin exam: no rashes or lesions noted Neuro General: patient oriented x3 and no focal motor deficits Speech: No Abnormal speech present Extrem General: Yes no clubbing, cyanosis or edema Psych Appearance: grossly normal Affect: Anxious affect present Assessment & Plan Assessment & Plan (1) CAD (coronary artery disease): Code(s): I25.10 - Atherosclerotic heart disease of [place] coronary artery without angina pectoris Category: Medical Qualifiers: Coronary Disease-Associated Artery/Lesion type: [place] artery [place] vs. transplanted heart: [place] heart Associated angina: with unstable angina Qualified Code(s): I25.110 - Atherosclerotic heart disease of [place] coronary artery with unstable angina pectoris Plan: CAD with severe branch vessel disease in his diagonal branch as well as chronic total occlusion of the RCA with collaterals. Patient was anginal symptoms seems to have resolved. He has in overall good functional status and able to exercise without any symptoms of angina. He has not been taking his Ranexa. At. Continue other therapy with amlodipine as well as aspirin high-intensity statin therapy in conjunction with ezetimibe. Target goal LDL less than 60 mg/dL. Encouraged to maintain activity level as tolerated. Advised to call me with any worsening symptoms. Symptoms of angina at rest were discussed. Sublingual nitroglycerin as needed. (2) HTN (hypertension): Code(s): I10 - Essential (primary) hypertension Category: Medical Qualifiers: Hypertension type: essential hypertension Qualified Code(s): I10 - Essential (primary) hypertension Plan: Hypertension which is currently well optimized on current therapy with lisinopril, amlodipine hydrochlorothiazide. Importance of good blood pressure control was discussed. Continue maintain activity level as tolerated. Low-salt diet. Advised to monitor blood pressure at home maintain a log. Goal blood pressure less than 130/84. Will follow up in the clinic in 6 months. Thank you for allowing me to partake in his care Medications: Changed From ranolazine ER 500 mg PO BID 180 tabs 3RF I25.110 - Atherosclerotic heart disease of [place] coronary artery with unstable angina pectoris To ranolazine ER 500 mg PO BID PRN I25.110 - Atherosclerotic heart disease of [place] coronary artery with unstable angina pectoris Coding Level of Care Code Est Pt Level 4 (10604) Complex EM visit Add On G2211 Diagnoses Coronary artery disease involving [place] coronary artery of [place] heart with unstable angina pectoris I25.110 Coronary Disease-Associated Artery/Lesion type: [place] artery [place] vs. transplanted heart: [place] heart Associated angina: with unstable angina Essential hypertension I10 Hypertension type: essential hypertension
== END 2025-03-08 09:38 | disposition home or self-care (01) ==
LOC: HO.HCS 08:55
PROVIDERS: PCP Physician Assistant; Visit Provider Internal Medicine Cardiovascular Disease
DX: I25.110 Atherosclerotic heart disease of native coronary artery with unstable angina pectoris (principal); I10 Essential (primary) hypertension
CPT/HCPCS: 99214